=== PATIENT | female | born 1985 | race Caucasian/White ===

== ENCOUNTER 2019-09-03 13:39 | Emergency (ER) | payer OTHER, MEDICAID ==
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
== END 2019-09-03 18:58 | disposition home or self-care (01) ==
LOC: JP.ED 13:39
DX: T76.21XA Adult sexual abuse, suspected, initial encounter (principal); F17.210 Nicotine dependence, cigarettes, uncomplicated; F41.9 Anxiety disorder, unspecified; F32.9 Major depressive disorder, single episode, unspecified; Z79.899 Other long term (current) drug therapy; Z88.1 Allergy status to other antibiotic agents; Z88.2 Allergy status to sulfonamides; Z88.8 Allergy status to other drugs, medicaments and biological substances
CPT/HCPCS: 87491; 87591; 99284

== ENCOUNTER 2019-11-06 20:45 | Emergency (ER) | payer MEDICAID ==
[2019-11-06] MEDS ORDERED: Ketorolac 60 MG/2 ML SDV IM ONE (21:36)
--- NOTE | 2019-11-06 21:39 | EDM.PDOC ---
ED HPI GENERAL MEDICAL PROBLEM - General Chief Complaint: Lower Extremity Injury/Pain Stated Complaint: LEFT KNEE PAIN Time Seen by Provider: 11/06/19 21:27 Source of Information: Reports: Patient, Family, RN Notes Reviewed History Limitations: Reports: No Limitations - History of Present Illness INITIAL COMMENTS - FREE TEXT/NARRATIVE: 34-year-old female presents emergency department a with complaint of left knee pain, she injured herself yesterday when she fell in the bathtub unfortunately she had fallen and was unable to get up without assistance. She reports that the emergency department today because the Tylenol she is taking for pain is not helping. 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 Left Knee Pain Score (Numeric/FACES): 10 - Related Data Allergies Allergy/AdvReac Type Severity Reaction Status Date / Time methotrexate Allergy Cannot Verified 11/06/19 21:10 Remember sulfamethoxazole Allergy Cannot Verified 11/06/19 21:10 [From Bactrim] Remember trimethoprim [From Bactrim] Allergy Cannot Verified 11/06/19 21:10 Remember Home Meds: Home Meds ALPRAZolam 2 mg PO QID PRN 09/03/19 [History] DULoxetine HCl [Cymbalta] 60 mg PO DAILY 09/03/19 [History] Dextroamphetamine/Amphetamine [Adderall] 30 mg PO DAILY 09/03/19 [History] Doxepin HCl [Doxepin] 100 mg PO DAILY 09/03/19 [History] Prazosin HCl [Prazosin] 2 mg PO BEDTIME PRN 09/03/19 [History] clonazePAM [Clonazepam] 2 mg PO DAILY PRN 09/03/19 [History] ondansetron HCL [Zofran] 4 mg PO Q8H PRN 09/03/19 [History] tiZANidine [Zanaflex] 2 mg PO TID 11/06/19 [History] Past Medical History 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: Musculoskeletal History: Reports: Back Pain, Chronic Psychiatric History: Reports: Anxiety, Depression - Infectious Disease History Infectious Disease History: Reports: Chicken Pox - Past Surgical History Female Surgical History: Reports: Section, Hysterectomy Social & Family History - Tobacco Use Smoking Status *Q: Current Every Day Smoker Years of Tobacco use: 15 Packs/Tins Daily: 0.5 Used Tobacco, but Quit: No Second Hand Smoke Exposure: Yes - Caffeine Use Caffeine Use: Reports: Coffee, Tea - Alcohol Use Days Per Week of Alcohol Use: 0 - Recreational Drug Use Recreational Drug Use: No Review of Systems - Review of Systems Review Of Systems: See Below Respiratory: Reports: No Symptoms Cardiovascular: Reports: No Symptoms Musculoskeletal: Reports: Back Pain, Joint Pain Neurological: Reports: No Symptoms ED EXAM, GENERAL - Physical Exam Exam: See Below Free Text/Narrative:: Patient is very histrionic and difficult to obtain any physical exam, when I examined her knee she describes exquisite 10 out of 10 pain with a light touch no movement of the knee I do appreciate some edema around the knee but minimal there is no erythema there is no pallor to the knee. Examination of the back she can shrug her shoulders however she does complain of pain palpation of the back she complains of tenderness to very light touch throughout the thoracic region difficult to perform an exam Exam Limited By: No Limitations General Appearance: Alert, WD/WN, No Apparent Distress Respiratory/Chest: No Respiratory Distress Course - Vital Signs Last Recorded V/S: Last Vital Signs Temp 98.1 F 11/06/19 21:23 Pulse 105 H 11/06/19 21:23 Resp 20 11/06/19 21:23 BP 124/75 11/06/19 21:23 Pulse Ox 98 11/06/19 21:23 - Orders/Labs/Meds Orders: Active Orders 24 hr Category Date Time Status Knee 1V or 2V Lt [CR] Stat Exams 11/06/19 21:37 Taken Thoracic Spine 3V [CR] Stat Exams 11/06/19 21:36 Taken fentaNYL [Sublimaze] Med 11/06/19 22:29 Once 50 mcg IM ONETIME ONE Meds: Medications Discontinued Medications Generic Name Dose Route Start Last Admin Trade Name Freq PRN Reason Stop Dose Admin Ketorolac Tromethamine 60 mg 11/06/19 21:36 11/06/19 21:51 Toradol IM 11/06/19 21:37 60 mg ONETIME ONE Administration Departure - Departure Time of Disposition: 22:32 Disposition: Home, Self-Care 01 Condition: Poor Clinical Impression: Left knee pain Qualifiers: Chronicity: acute Qualified Code(s): M25.562 - Pain in left knee - Discharge Information Instructions: Acute Knee Pain, Adult Referrals: Consuelo Oh PA-C [Primary Care Provider] - Forms: ED Department Discharge Additional Instructions: Continue to use your Tylenol as needed for pain control,, orthopedics will contact you next week for an appointment time for further evaluation and treatment Sepsis Event Note (ED) - Evaluation Sepsis Screening Result: No Definite Risk - Focused Exam Vital Signs: Vital Signs Temp Pulse Resp BP Pulse Ox 11/06/19 21:23 98.1 F 105 H 20 124/75 98 - My Orders Last 24 Hours: My Active Orders 11/06/19 21:36 Thoracic Spine 3V [CR] Stat 11/06/19 21:37 Knee 1V or 2V Lt [CR] Stat 11/06/19 22:29 fentaNYL [Sublimaze] 50 mcg IM ONETIME ONE - Assessment/Plan Last 24 Hours: My Active Orders 11/06/19 21:36 Thoracic Spine 3V [CR] Stat 11/06/19 21:37 Knee 1V or 2V Lt [CR] Stat 11/06/19 22:29 fentaNYL [Sublimaze] 50 mcg IM ONETIME ONE Plan: Assessment Acuity = acute Site and laterality = left knee pain Etiology = secondary to a twisting injury Manifestations = none Location of injury = Home Lab values = x-ray of the knee as well as x-ray of the thorax I do not audelia reciate any acute process this will be over read by radiology Plan Consultation was set up with orthopedic surgery they will contact her next week for further evaluation and treatment continue to use Tylenol as needed for pain control, did offer Higinio wrap and crutches of which she declined This note was dictated using [employer] voice recognition software please call with any questions on syntax or grammar.
[2019-11-06] MEDS ORDERED: Ketorolac 60 MG/2 ML SDV ONE (21:43)
[2019-11-06] MEDS ORDERED: fentaNYL 100 MCG/2 ML SDV IM ONE (22:29)
[2019-11-06] MEDS ORDERED: fentaNYL 100 MCG/2 ML SDV ONE (22:35)
--- NOTE | 2019-11-09 09:26 | CR ---
Thoracic Spine 3V, CLINICAL HISTORY: Fall FINDINGS: The vertebral bodies are normal in height. There is no significant osteophytosis. The pedicles are unremarkable. Impression: Negative Knee 1V or 2V Lt CLINICAL HISTORY: Fall FINDINGS: No acute fracture or dislocation is noted. There are no osseous lesions. Articular surfaces are smooth Impression: Negative
== END 2019-11-06 23:09 | disposition home or self-care (01) ==
LOC: JP.ED 20:45
DX: M25.562 Pain in left knee (principal); F41.9 Anxiety disorder, unspecified; F32.9 Major depressive disorder, single episode, unspecified; F17.210 Nicotine dependence, cigarettes, uncomplicated; Z88.8 Allergy status to other drugs, medicaments and biological substances; Z88.2 Allergy status to sulfonamides; Z88.1 Allergy status to other antibiotic agents; Z79.899 Other long term (current) drug therapy
CPT/HCPCS: 72072; 73560; 96372; 99283; J1885; J3010

== ENCOUNTER 2019-12-16 23:43 | Emergency (ER) | payer MEDICAID ==
[2019-12-17] MEDS ORDERED: Ketorolac 60 MG/2 ML SDV IM ONE (00:44)
--- NOTE | 2019-12-17 00:50 | EDM.PDOC ---
ED HPI GENERAL MEDICAL PROBLEM - General Chief Complaint: Lower Extremity Injury/Pain Stated Complaint: FELL INJURING RIGHT LEG Time Seen by Provider: 12/17/19 00:35 Source of Information: Reports: Patient, Old Records, RN History Limitations: Reports: No Limitations - History of Present Illness INITIAL COMMENTS - FREE TEXT/NARRATIVE: 34 yo female stood up tonight from her couch and fell with resulting injury to that foot. Came promptly to the ER. Did not take anything for the pain. Denies LOC. Is not sure why she fell. Reports a hx of many injuries to that foot in the past, but no surgeries. Onset: Today, Sudden Onset Date: 12/17/19 Duration: Minutes:, Constant Location: Reports: Lower Extremity, Right Quality: Reports: Burning Severity: Moderate Improves with: Reports: None Worsens with: Reports: None Context: Reports: Trauma Associated Symptoms: Reports: No Other Symptoms Treatments MASS SPEC: Reports: Other (see below) (none) right leg Pain Score (Numeric/FACES): 10 - Related Data Allergies Allergy/AdvReac Type Severity Reaction Status Date / Time methotrexate Allergy Cannot Verified 12/17/19 00:05 Remember sulfamethoxazole Allergy Cannot Verified 12/17/19 00:05 [From Bactrim] Remember trimethoprim [From Bactrim] Allergy Cannot Verified 12/17/19 00:05 Remember Home Meds: Home Meds ALPRAZolam 2 mg PO QID PRN 09/03/19 [History] DULoxetine HCl [Cymbalta] 60 mg PO DAILY 09/03/19 [History] Dextroamphetamine/Amphetamine [Adderall] 30 mg PO DAILY 09/03/19 [History] Doxepin HCl [Doxepin] 100 mg PO BEDTIME 09/03/19 [History] Prazosin HCl [Prazosin] 2 mg PO BEDTIME PRN 09/03/19 [History] clonazePAM [Clonazepam] 2 mg PO BEDTIME PRN 09/03/19 [History] ondansetron HCL [Zofran] 4 mg PO Q8H PRN 09/03/19 [History] tiZANidine [Zanaflex] 2 mg PO TID 11/06/19 [History] Acetaminophen [Acetaminophen Extra Strength] 500 mg PO ASDIRECTED PRN 12/17/19 [History] Past Medical History Respiratory History: Reports: Other (See Below) Other Respiratory History: sarcidosis 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: Musculoskeletal History: Reports: Back Pain, Chronic, Other (See Below) Other Musculoskeletal History: torn ligament left leg Psychiatric History: Reports: Anxiety, Depression, Suicide Attempt Endocrine/Metabolic History: Reports: Obesity/BMI 30+ - Infectious Disease History Infectious Disease History: Reports: Chicken Pox - Past Surgical History HEENT Surgical History: Reports: Adenoidectomy, Tonsillectomy GI Surgical History: Reports: Hernia Repair/Other Female Surgical History: Reports: Section, Hysterectomy Neurological Surgical History: Reports: Lumbar Spine Social & Family History - Tobacco Use Tobacco Use Status *Q: Current Every Day Tobacco User Years of Tobacco use: 17 Packs/Tins Daily: 0.4 - Caffeine Use Caffeine Use: Reports: Coffee, Soda - Recreational Drug Use Recreational Drug Use: Yes Drug Use in Last 12 Months: Yes Recreational Drug Type: Reports: Marijuana/Hashish Recreational Drug Use Frequency: Rarely Review of Systems - Review of Systems Review Of Systems: See Below Constitutional: Reports: No Symptoms Musculoskeletal: Reports: Foot Pain (Right) Skin: Denies: Bruising, Erythema Neurological: Reports: No Symptoms ED EXAM, GENERAL - Physical Exam Exam: See Below Exam Limited By: No Limitations General Appearance: Alert, WD/WN, No Apparent Distress Back Exam: Normal Inspection Extremities: Normal Inspection, Normal Range of Motion, No Pedal Edema. No: Non-Tender (minimal diffuse tenderness), Pedal Edema (no swelling or deformity), Limited Range of Motion (ROM appears to be pretty normal. ), Increased Warmth, Redness Neurological: Alert, Oriented, CN II-XII Intact, Normal Cognition, No Motor/Sensory Deficits Psychiatric: Normal Affect, Normal Mood Skin Exam: Warm, Dry, Intact, Normal Color, No Rash. No: Cool, Ecchymosis, Erythema, Increased Warmth, Mottled, Pallor, Wound/Incision Course - Vital Signs Last Recorded V/S: Last Vital Signs Temp 36.8 C 12/17/19 00:16 Pulse 99 12/17/19 00:16 Resp 17 12/17/19 00:16 BP 134/67 12/17/19 00:16 Pulse Ox 98 12/17/19 00:16 - Orders/Labs/Meds Orders: Active Orders 24 hr Category Date Time Status Foot Comp Min 3V Rt [CR] Stat Exams 12/17/19 00:44 Ordered Meds: Medications Discontinued Medications Generic Name Dose Route Start Last Admin Trade Name Kadie PRN Reason Stop Dose Admin Ketorolac Tromethamine 60 mg 12/17/19 00:44 12/17/19 00:54 Toradol IM 12/17/19 00:45 60 mg ONETIME ONE Administration - Radiology Interpretation Free Text/Narrative:: R foot X-ray-neg Departure - Departure Time of Disposition: 01:15 Disposition: Home, Self-Care 01 Condition: Good Clinical Impression: Right foot strain Qualifiers: Encounter type: initial encounter Qualified Code(s): S96.911A - Strain of unspecified muscle and tendon at ankle and foot level, right foot, initial encounter - Discharge Information *PRESCRIPTION DRUG MONITORING PROGRAM REVIEWED*: No *COPY OF PRESCRIPTION DRUG MONITORING REPORT IN PATIENT CATHIE: No Referrals: Consuelo Oh PA-C [Primary Care Provider] - Forms: ED Department Discharge Additional Instructions: Aleve 2 every 8 hrs with food starting in the morning. Acetaminophen up to 1000 mg every 6 hrs as needed. We'll contact you if radiology sees any fractures later today. F/U with your doctor as needed. Sepsis Event Note (ED) - Evaluation Sepsis Screening Result: No Definite Risk - Focused Exam Vital Signs: Vital Signs Temp Pulse Resp BP Pulse Ox 12/17/19 00:16 36.8 C 99 17 134/67 98 12/17/19 00:09 36.8 C 99 17 134/67 98 - My Orders Last 24 Hours: My Active Orders 12/17/19 00:44 Foot Comp Min 3V Rt [CR] Stat - Assessment/Plan Last 24 Hours: My Active Orders 12/17/19 00:44 Foot Comp Min 3V Rt [CR] Stat
--- NOTE | 2019-12-17 09:17 | CR ---
Foot Comp Min 3V Rt CLINICAL HISTORY: Pain, trauma FINDINGS: There is no acute fracture or dislocation within the foot. No destructive changes are present. There is a small calcaneal spur. IMPRESSION: No acute bony process.
== END 2019-12-17 01:25 | disposition home or self-care (01) ==
LOC: JP.ED 23:43
DX: S96.911A Strain of unspecified muscle and tendon at ankle and foot level, right foot, initial encounter (principal); F41.9 Anxiety disorder, unspecified; F32.9 Major depressive disorder, single episode, unspecified; E66.9 Obesity, unspecified; F17.210 Nicotine dependence, cigarettes, uncomplicated; Z68.36 Body mass index [BMI] 36.0-36.9, adult; Z88.8 Allergy status to other drugs, medicaments and biological substances; Z88.2 Allergy status to sulfonamides; Z88.1 Allergy status to other antibiotic agents; Z79.899 Other long term (current) drug therapy; W08.XXXA Fall from other furniture, initial encounter
CPT/HCPCS: 73630; 96372; 99283; J1885

== ENCOUNTER 2020-01-25 03:07 | Emergency (ER) | payer MEDICAID ==
--- NOTE | 2020-01-25 03:47 | EDM.PDOCBH ---
ED HPI GENERAL MEDICAL PROBLEM - General Chief Complaint: Drug or Alcohol Abuse Stated Complaint: EVAL Time Seen by Provider: 01/25/20 03:25 Source of Information: Reports: Patient, Family History Limitations: Reports: No Limitations - History of Present Illness INITIAL COMMENTS - FREE TEXT/NARRATIVE: 34-year-old female who was having a "panic attack" tonight and took 8 Xanax, 2 hours later she took 8 more. She was acting sedated and drowsy and admitted to her that she had taken many medications. She did not take them to hurt herself according to the patient. She has some slurred speech but is otherwise stable. No other symptoms currently. She wanted to get checked out because she did not want to "go into a coma". Associated Symptoms: Denies: Chest Pain, Fever/Chills, Shortness of Breath - Related Data Allergies Allergy/AdvReac Type Severity Reaction Status Date / Time methotrexate Allergy Cannot Verified 01/25/20 03:20 Remember sulfamethoxazole Allergy Cannot Verified 01/25/20 03:20 [From Bactrim] Remember trimethoprim [From Bactrim] Allergy Cannot Verified 01/25/20 03:20 Remember Home Meds: Home Meds ALPRAZolam 2 mg PO QID PRN 09/03/19 [History] DULoxetine HCl [Cymbalta] 60 mg PO DAILY 09/03/19 [History] Dextroamphetamine/Amphetamine [Adderall] 30 mg PO DAILY 09/03/19 [History] Doxepin HCl [Doxepin] 100 mg PO BEDTIME 09/03/19 [History] Prazosin HCl [Prazosin] 2 mg PO BEDTIME PRN 09/03/19 [History] clonazePAM [Clonazepam] 2 mg PO BEDTIME PRN 09/03/19 [History] ondansetron HCL [Zofran] 4 mg PO Q8H PRN 09/03/19 [History] tiZANidine [Zanaflex] 2 mg PO TID 11/06/19 [History] Acetaminophen [Acetaminophen Extra Strength] 500 mg PO ASDIRECTED PRN 12/17/19 [History] Past Medical History Cardiovascular History: Reports: Arrhythmia Respiratory History: Reports: Asthma, Other (See Below) Other Respiratory History: sarcidosis 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: Musculoskeletal History: Reports: Back Pain, Chronic, Other (See Below) Other Musculoskeletal History: torn ligament left leg Psychiatric History: Reports: ADHD, Anxiety, Depression, Psych Hospitalization(s), Suicide Attempt, Suicidal Ideation Endocrine/Metabolic History: Reports: Obesity/BMI 30+ - Infectious Disease History Infectious Disease History: Reports: Chicken Pox, Herpes, Mononucleosis - Past Surgical History HEENT Surgical History: Reports: Adenoidectomy, Tonsillectomy GI Surgical History: Reports: Hernia Repair/Other Female Surgical History: Reports: Section, Hysterectomy Neurological Surgical History: Reports: Lumbar Spine Social & Family History - Tobacco Use Tobacco Use Status *Q: Current Every Day Tobacco User Years of Tobacco use: 16 Packs/Tins Daily: 0.2 - Caffeine Use Caffeine Use: Reports: Coffee, Soda - Recreational Drug Use Recreational Drug Use: Yes Drug Use in Last 12 Months: No Recreational Drug Type: Reports: Ecstasy, LSD (Acid), Marijuana/Hashish ED ROS GENERAL - Review of Systems Review Of Systems: See Below Constitutional: Denies: Fever, Chills Respiratory: Denies: Shortness of Breath GI/Abdominal: Denies: Nausea, Vomiting Neurological: Denies: Headache Psychiatric: Reports: Anxiety ED EXAM, BEHAVIORAL HEALTH - Physical Exam Exam: See Below Exam Limited By: No Limitations General Appearance: Alert, No Apparent Distress Eye Exam: Bilateral Eye: PERRL Head: Atraumatic Respiratory/Chest: No Respiratory Distress, Lungs Clear Cardiovascular: Regular Rate, Rhythm Extremities: No: Pedal Edema Neurological: Alert, Oriented x 3 Psychiatric: Depressed Mood, Flat Affect Skin Exam: Warm, Dry COURSE, BEHAVIORAL HEALTH COMP - Course Vital Signs: Last Vital Signs Temp 97.9 F 01/25/20 03:26 Pulse 104 H 01/25/20 03:26 Resp 26 H 01/25/20 03:26 BP 139/87 01/25/20 03:26 Pulse Ox 97 01/25/20 03:26 Re-Assessment/Re-Exam: Poison control was contacted and recommended no monitoring necessary. She will be discharged to the care of her , with recommendations to no longer take any medications except how prescribed. Departure - Departure Time of Disposition: 04:26 Disposition: Home, Self-Care 01 Clinical Impression: Prescription drug abuse - Discharge Information Instructions: Managing Anxiety, Adult Referrals: Consuelo hO PA-C [Primary Care Provider] - Forms: ED Department Discharge Care Plan Goals: Take your medications only as prescribed, if you do not feel they are helping see your regular provider to discuss possible medication changes. Sepsis Event Note (ED) - Evaluation Sepsis Screening Result: No Definite Risk - Focused Exam Vital Signs: Vital Signs Temp Pulse Resp BP Pulse Ox 01/25/20 03:26 97.9 F 104 H 26 H 139/87 97 01/25/20 03:25 97.9 F 104 H 26 H 139/87 97
== END 2020-01-25 04:28 | disposition home or self-care (01) ==
LOC: JP.ED 03:07
DX: F19.10 Other psychoactive substance abuse, uncomplicated (principal); E66.9 Obesity, unspecified; F17.210 Nicotine dependence, cigarettes, uncomplicated; F41.9 Anxiety disorder, unspecified; F32.9 Major depressive disorder, single episode, unspecified; J45.909 Unspecified asthma, uncomplicated; Z88.2 Allergy status to sulfonamides; Z88.8 Allergy status to other drugs, medicaments and biological substances; Z79.899 Other long term (current) drug therapy; Z90.49 Acquired absence of other specified parts of digestive tract; Z90.710 Acquired absence of both cervix and uterus; Z68.38 Body mass index [BMI] 38.0-38.9, adult
CPT/HCPCS: 99283

== ENCOUNTER 2020-02-19 03:17 | Emergency (ER) | payer MEDICAID ==
--- NOTE | 2020-02-19 04:22 | EDM.PDOC ---
ED HPI GENERAL MEDICAL PROBLEM - General Chief Complaint: General Stated Complaint: TREMORS Time Seen by Provider: 02/19/20 04:05 Source of Information: Reports: Patient, Old Records, RN History Limitations: Reports: No Limitations - History of Present Illness INITIAL COMMENTS - FREE TEXT/NARRATIVE: 34 yo female who was here in the middle of the night last night for taking too many of her anxiety pills presents tonight in the middle of the night for taking too much of her albuterol. Is a smoker. While here last night was given azithromycin and albuterol for wheezing. No fever. Thinks she took about 10 puffs consecutively for her wheezing and now has tachycardia and jitteriness. Onset: Today, Gradual Onset Date: 02/19/20 Duration: Minutes: Location: Reports: Chest, Generalized Quality: Reports: Ache (all over now that the effects of the albuterol is wearing off. 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) (albuterol puffs x 10) Chest Pain Score (Numeric/FACES): 6 - Related Data Allergies Allergy/AdvReac Type Severity Reaction Status Date / Time methotrexate Allergy Cannot Verified 02/19/20 03:38 Remember sulfamethoxazole Allergy Cannot Verified 02/19/20 03:38 [From Bactrim] Remember trimethoprim [From Bactrim] Allergy Cannot Verified 02/19/20 03:38 Remember Home Meds: Home Meds ALPRAZolam 2 mg PO QID PRN 09/03/19 [History] DULoxetine HCl [Cymbalta] 60 mg PO DAILY 09/03/19 [History] Dextroamphetamine/Amphetamine [Adderall] 30 mg PO DAILY 09/03/19 [History] Doxepin HCl [Doxepin] 100 mg PO BEDTIME 09/03/19 [History] Prazosin HCl [Prazosin] 2 mg PO BEDTIME PRN 09/03/19 [History] clonazePAM [Clonazepam] 2 mg PO BEDTIME PRN 09/03/19 [History] ondansetron HCL [Zofran] 4 mg PO Q8H PRN 09/03/19 [History] tiZANidine [Zanaflex] 2 mg PO TID 11/06/19 [History] Acetaminophen [Acetaminophen Extra Strength] 500 mg PO ASDIRECTED PRN 12/17/19 [History] Albuterol Sulfate [Albuterol Sulfate Hfa] 1 inh INH Q4H PRN 02/19/20 [History] Azithromycin 250 mg PO DAILY 02/19/20 [History] Hydrocodone/Acetaminophen [[place] 5-325 Tablet] 1 tab PO Q4HR PRN 02/19/20 [History] Past Medical History Cardiovascular History: Reports: Arrhythmia Respiratory History: Reports: Asthma, Other (See Below) Other Respiratory History: sarcidosis 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: Musculoskeletal History: Reports: Back Pain, Chronic, Other (See Below) Other Musculoskeletal History: torn ligament left leg Psychiatric History: Reports: ADHD, Anxiety, Depression, Psych Hospitalization(s), Suicide Attempt, Suicidal Ideation Endocrine/Metabolic History: Reports: Obesity/BMI 30+ - Infectious Disease History Infectious Disease History: Reports: Chicken Pox, Herpes, Mononucleosis - Past Surgical History HEENT Surgical History: Reports: Adenoidectomy, Tonsillectomy GI Surgical History: Reports: Hernia Repair/Other Female Surgical History: Reports: Section, Hysterectomy Neurological Surgical History: Reports: Lumbar Spine Social & Family History - Tobacco Use Tobacco Use Status *Q: Current Every Day Tobacco User Years of Tobacco use: 18 Packs/Tins Daily: 0.5 - Caffeine Use Caffeine Use: Reports: Soda - Recreational Drug Use Recreational Drug Use: Yes Recreational Drug Type: Reports: Marijuana/Hashish Recreational Drug Last Use: marijuana on Saturday ED ROS GENERAL - Review of Systems Review Of Systems: See Below Constitutional: Reports: No Symptoms HEENT: Reports: No Symptoms Respiratory: Reports: Wheezing Cardiovascular: Reports: Palpitations GI/Abdominal: Reports: No Symptoms : Reports: No Symptoms Musculoskeletal: Reports: Other (diffuse achiness) Skin: Reports: No Symptoms Neurological: Reports: Tingling (in hands/feet), Tremors ED EXAM, GENERAL - Physical Exam Exam: See Below Exam Limited By: No Limitations General Appearance: Alert, WD/WN, No Apparent Distress, Obese Eye Exam: Bilateral Eye: Normal Inspection Ears: Normal External Exam, Normal Canal, Hearing Grossly Normal Ear Exam: Bilateral Ear: Auricle Normal, Canal Normal Nose: Normal Inspection, No Blood Throat/Mouth: Normal Inspection, Normal Lips, Normal Oropharynx, Normal Voice, No Airway Compromise Head: Atraumatic, Normocephalic Neck: Normal Inspection Respiratory/Chest: No Respiratory Distress, Normal Breath Sounds, No Accessory Muscle Use, Wheezing Cardiovascular: Regular Rate, Rhythm, No Edema, Tachycardia Back Exam: Normal Inspection Extremities: Normal Inspection, Normal Range of Motion, Non-Tender, No Pedal Edema Neurological: Alert, Oriented, CN II-XII Intact, Normal Cognition, No Motor/Sensory Deficits Psychiatric: Normal Affect, Normal Mood Skin Exam: Warm, Dry, Intact, Normal Color, No Rash Course - Vital Signs Last Recorded V/S: Last Vital Signs Temp 36.7 C 02/19/20 03:36 Pulse 122 H 02/19/20 03:36 Resp 24 H 02/19/20 03:36 BP 93/36 L 02/19/20 03:36 Pulse Ox 97 02/19/20 03:36 Departure - Departure Time of Disposition: 04:30 Disposition: Home, Self-Care 01 Condition: Fair Clinical Impression: Bronchospasm, Overuse of medication - Discharge Information *PRESCRIPTION DRUG MONITORING PROGRAM REVIEWED*: Not Applicable *COPY OF PRESCRIPTION DRUG MONITORING REPORT IN PATIENT CATHIE: Not Applicable Instructions: Bronchospasm, Adult, [id number] Referrals: Consuelo Oh PA-C [Primary Care Provider] - Additional Instructions: Use your albuterol as directed, do not use more than your directions suggest. Add prednisone as directed. See your doctor for recheck within the week. No smoking. Sepsis Event Note (ED) - Evaluation Sepsis Screening Result: No Definite Risk - Focused Exam Vital Signs: Vital Signs Temp Pulse Resp BP Pulse Ox 02/19/20 03:36 36.7 C 122 H 24 H 93/36 L 97
== END 2020-02-19 04:36 | disposition home or self-care (01) ==
LOC: JP.ED 03:17
DX: J98.01 Acute bronchospasm (principal); E66.9 Obesity, unspecified; F17.210 Nicotine dependence, cigarettes, uncomplicated; Z68.41 Body mass index [BMI] 40.0-44.9, adult; Z88.8 Allergy status to other drugs, medicaments and biological substances; Z88.2 Allergy status to sulfonamides; Z88.1 Allergy status to other antibiotic agents; Z79.899 Other long term (current) drug therapy
CPT/HCPCS: 99283; 99284

== ENCOUNTER 2020-04-21 00:47 | Emergency (ER) | payer MEDICAID ==
[2020-04-21] MEDS ORDERED: Sodium Chloride 0.9% 10 ML Syringe FLUSH PRN (00:56)
[2020-04-21] MEDS ORDERED: Ketorolac 30 MG/ML SDV IVPUSH ONE (01:03)
[2020-04-21] MEDS ORDERED: Ketorolac 30 MG/ML SDV IM ONE (01:05)
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
[2020-04-21] MEDS ORDERED: HYDROmorphone 0.5 MG/0.5 ML Syringe IM ONE (01:58)
[2020-04-21] MEDS ORDERED: Methocarbamol 500 MG Tab PO ONE (02:57)
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
== END 2020-04-21 03:51 | disposition home or self-care (01) ==
LOC: JP.ED 00:47
DX: S06.0X0A Concussion without loss of consciousness, initial encounter (principal); S39.012A Strain of muscle, fascia and tendon of lower back, initial encounter; S29.012A Strain of muscle and tendon of back wall of thorax, initial encounter; S16.1XXA Strain of muscle, fascia and tendon at neck level, initial encounter; J45.909 Unspecified asthma, uncomplicated; E66.9 Obesity, unspecified; Z68.41 Body mass index [BMI] 40.0-44.9, adult; Z88.8 Allergy status to other drugs, medicaments and biological substances; Z88.2 Allergy status to sulfonamides; Z88.1 Allergy status to other antibiotic agents; Z79.899 Other long term (current) drug therapy; Z72.0 Tobacco use; V86.52XA Driver of snowmobile injured in nontraffic accident, initial encounter
CPT/HCPCS: 36415; 70450; 71046; 71046-26; 72125; 72128; 72131; 80053; 80305-QW; 80307; 81001; 85025; 96372; 99283; 99285-25; A9270-GY; J1170; J1885

== ENCOUNTER 2020-08-19 04:10 | Emergency (ER) | payer MEDICAID, OTHER ==
--- NOTE | 2020-08-19 04:44 | EDM.PDOCBH ---
<Bahman Keys - Last Filed: 08/19/20 06:51> ED HPI GENERAL MEDICAL PROBLEM - General Chief Complaint: Behavioral/Psych Stated Complaint: EVAL Time Seen by Provider: 08/19/20 04:16 Source of Information: Reports: Patient, Family History Limitations: Reports: Uncooperative - History of Present Illness INITIAL COMMENTS - FREE TEXT/NARRATIVE: Bushra is a 35-year-old female who was brought into the ED by her significant other after supposedly ingesting an unknown quantity of an unknown variety of medications. The patient is not cooperative with answering questions but is responding with defiance. The significant other stated that she had told him that she had taken a bunch of pills and she is on many antipsychotic medications and prescription drugs. She has made comment that she wants to be DNR/DNI but it appears that she intentionally overdosed. Given this information I immediately put her on a 72-hour hold. - Related Data Allergies Allergy/AdvReac Type Severity Reaction Status Date / Time methotrexate Allergy Cannot Verified 08/19/20 05:14 Remember sulfamethoxazole Allergy Cannot Verified 08/19/20 05:14 [From Bactrim] Remember trimethoprim [From Bactrim] Allergy Cannot Verified 08/19/20 05:14 Remember Home Meds: Home Meds ALPRAZolam 2 mg PO QID PRN 09/03/19 [History] DULoxetine HCl [Cymbalta] 60 mg PO DAILY 09/03/19 [History] Dextroamphetamine/Amphetamine [Adderall] 30 mg PO DAILY 09/03/19 [History] Doxepin HCl [Doxepin] 100 mg PO BEDTIME 09/03/19 [History] Prazosin HCl [Prazosin] 5 mg PO BEDTIME PRN 09/03/19 [History] clonazePAM [Clonazepam] 2 mg PO BEDTIME PRN 09/03/19 [History] ondansetron HCL [Zofran] 4 mg PO Q8H PRN 09/03/19 [History] tiZANidine [Zanaflex] 2 mg PO TID 11/06/19 [History] Acetaminophen [Acetaminophen Extra Strength] 500 mg PO ASDIRECTED PRN 12/17/19 [History] Albuterol Sulfate [Albuterol Sulfate Hfa] 1 inh INH Q4H PRN 02/19/20 [History] Hydrocodone/Acetaminophen [[place] 5-325 Tablet] 1 tab PO Q4HR PRN 02/19/20 [History] Past Medical History Cardiovascular History: Reports: Arrhythmia Respiratory History: Reports: Asthma, Other (See Below) Other Respiratory History: sarcidosis [employer] History: Reports: Musculoskeletal History: Reports: Back Pain, Chronic, Other (See Below) Other Musculoskeletal History: torn ligament left leg Psychiatric History: Reports: ADHD, Anxiety, Depression, Psych Hospitalization(s), Suicide Attempt, Suicidal Ideation Endocrine/Metabolic History: Reports: Obesity/BMI 30+ - Infectious Disease History Infectious Disease History: Reports: Chicken Pox, Herpes, Mononucleosis - Past Surgical History HEENT Surgical History: Reports: Adenoidectomy, Tonsillectomy GI Surgical History: Reports: Hernia Repair/Other Female Surgical History: Reports: Section, Hysterectomy Neurological Surgical History: Reports: Lumbar Spine Social & Family History - Caffeine Use Caffeine Use: Reports: Coffee, Tea ED ROS GENERAL - Review of Systems Review Of Systems: Unable To Obtain Reason Not Obtained: Patient is refusing to answer questions ED EXAM, BEHAVIORAL HEALTH - Physical Exam Exam: See Below Exam Limited By: Uncooperative General Appearance: Lethargic, Obese Throat/Mouth: Normal Inspection, Normal Oropharynx, Normal Voice, No Airway Compromise Head: Normocephalic Neck: Normal Inspection, Supple Respiratory/Chest: No Respiratory Distress, Lungs Clear, Normal Breath Sounds, Other (At times she willfully holds her breath as long as she can) Cardiovascular: Normal Peripheral Pulses, Regular Rate, Rhythm, No Murmur GI/Abdominal: Normal Bowel Sounds, Soft, Non-Tender Extremities: Normal Inspection, Normal Range of Motion, No Pedal Edema, Normal Capillary Refill Neurological: Alert, Normal Cognition, No Motor/Sensory Deficits, Oriented x 3, Other (There appears to be some attention-getting games going on here with the patient feigning to be unresponsive but then is able to stand up and move over from the chair to the bed with minimal assistance.) Psychiatric: Uncooperative Skin Exam: Warm, Dry, Intact, Normal color #1 Interpretation EKG Date: 08/19/20 Time: 04:48 Rhythm: NSR Rate (Beats/Min): [address] [place]: Normal P-Wave: Present QRS: Normal ST-T: Normal QT: Normal Comparison: NA - No Prior EKG COURSE, BEHAVIORAL HEALTH COMP - Course Re-Assessment/Re-Exam: Patient is on a variety of medications including hydrocodone, tizanidine, acetaminophen, prazosin, duloxetine, alprazolam, doxepin, clonazepam, ondansetron, and an phentermine dextroamphetamine XR. It is unclear what of these she may have taken or what additional medications she may have taken. We will check for electrolytes with a comprehensive metabolic panel, magnesium, CBC, ethanol, acetaminophen, salicylate, urine drug screen and urinalysis, and an EKG. I discussed the case with poison control who basically recommended we watch for any QRS enlargement or QT prolongation. They recommended cardiac monitoring for at least 8 hours. The patient has been placed on a 72-hour hold with suspicion of intentional overdose. She has been uncooperative for her evaluation and still refuses to tell us what she took. [facility]. Perkins. Poison control recommends if she has any enlargement of QRS or prolongation of the QT to check for magnesium and calcium levels and treat appropriately. She may also need sodium bicarbonate for any QRS prolongation. They also recommended watching for hypotension which could be secondary to the doxepin for seizure which could be secondary to the duloxetine. Seizures will be responsive to benzodiazepines. I did review the patient's [facility] chart. I reviewed the patient's labs showing a leukocytosis of 13.2 which is predominantly monocytes. Her hemoglobin is 15.0 with a hematocrit of 44 and a platelet count of 260,000. Her comprehensive metabolic panel is essentially normal with normal LFTs, calcium, sodium and potassium, chloride and bicarbonate. Her anion gap is slightly elevated at 14.4. Her ethanol level is the less than 3. Her acetaminophen level is 0.0 and her salicylate level is 2.6 which is normal. Urinalysis and urine drug screen are pending. 05:50 urinalysis is negative for any infection. Urine drug screen is only positive for benzodiazepines. The patient is on Xanax. There is no evidence for tricyclic's, and feta means or methamphetamines, phencyclidine, THC, opiates, barbiturates, MDMA, cocaine, or propoxyphene. 07:00 care of the patient will be transferred from Dr. Keys to Dr. Chua with the plan to continue to monitor her for 8 hours. After which time she can be medically cleared for consideration for transfer for inpatient psychiatry. Departure - Departure Disposition: DC/Tfer to Other 70 Clinical Impression: Intentional overdose of drug in tablet form, Depressive disorder - Discharge Information Referrals: PCP,None [Primary Care Provider] - Forms: ED Department Discharge Care Plan Goals: Patient will be transferred by EMS to [facility] for inpatient evaluation, treatment, and stabilization of severe depression with suicidal attempt. <Christian Chua - Last Filed: 08/19/20 13:53> COURSE, BEHAVIORAL HEALTH COMP - Course Vital Signs: Last Vital Signs Temp 97.6 F 08/19/20 04:35 Pulse 82 08/19/20 07:50 Resp 26 H 08/19/20 07:50 BP 110/68 08/19/20 07:50 Pulse Ox 94 L 08/19/20 07:50 Orders, Labs, Meds: Active Orders 24 hr Category Date Time Status EKG Documentation Completion [RC] ASDIRECTED Care 08/19/20 04:23 Active EKG 12 Lead [EK] Routine Ther 08/19/20 04:23 Ordered Laboratory Tests 08/19/20 08/19/20 08/19/20 Range/Units 04:23 04:23 04:33 WBC 13.2 H (4.5-11.0) K/uL RBC 4.75 (3.30-5.50) M/uL Hgb 15.0 (12.0-15.0) g/dL Hct 44.0 (36.0-48.0) % MCV 93 (80-98) fL MCH 32 H (27-31) pg MCHC 34 (32-36) % Plt Count 260 (150-400) K/uL Neut % (Auto) 54.1 (36-66) % Lymph % (Auto) 35.0 (24-44) % [place] % (Auto) 8.0 H (2-6) % Eos % (Auto) 2.4 (2-4) % Baso % (Auto) 0.5 (0-1) % Sodium (140-148) mmol/L Potassium (3.6-5.2) mmol/L Chloride (100-108) mmol/L Carbon Dioxide (21-32) mmol/L Anion Gap (5.0-14.0) mmol/L BUN (7-18) mg/dL Creatinine (0.6-1.0) mg/dL Est Cr Clr Drug Dosing mL/min Estimated GFR (MDRD) (>60) Glucose (74-106) mg/dL Calcium (8.5-10.1) mg/dL Total Bilirubin (0.2-1.0) mg/dL AST (15-37) U/L ALT (12-78) U/L Alkaline Phosphatase (46-116) U/L Total Protein (6.4-8.2) g/dL Albumin (3.4-5.0) g/dL Globulin (2.3-3.5) g/dL Albumin/Globulin Ratio (1.2-2.2) Urine Color Yellow (YELLOW) Urine Appearance Turbid A (CLEAR) Urine pH 6.0 (5.0-8.0) Ur Specific [place] >= 1.030 (1.008-1.030) Urine Protein Negative (NEGATIVE) mg/dL Urine Glucose (UA) Negative (NEGATIVE) mg/dL Urine Ketones Negative (NEGATIVE) mg/dL Urine Occult Blood Negative (NEGATIVE) Urine Nitrite Negative (NEGATIVE) Urine Bilirubin Negative (NEGATIVE) Urine Urobilinogen 0.2 (0.2-1.0) EU/dL Ur Leukocyte Esterase Negative (NEGATIVE) Urine RBC 0-5 (0-5) Urine WBC 0-5 (0-5) Ur Epithelial Cells Few Amorphous Sediment Numerous Urine Bacteria Rare Urine Mucus Rare Salicylates (2.0-20.0) mg/dL Urine Opiates Screen Negative (NEGATIVE) Ur Oxycodone Screen Negative (NEGATIVE) Urine Methadone Screen Negative (NEGATIVE) Ur Propoxyphene Screen Negative (NEGATIVE) Acetaminophen (10.0-30.0) ug/mL Ur Barbiturates Screen Negative (NEGATIVE) Ur Tricyclics Screen Negative (NEGATIVE) Ur Phencyclidine Scrn Negative (NEGATIVE) Ur Amphetamine Screen Negative (NEGATIVE) U Methamphetamines Scrn Negative (NEGATIVE) Urine MDMA Screen Negative (NEGATIVE) U Benzodiazepines Scrn Presumptive positive H (NEGATIVE) U Cocaine Metab Screen Negative (NEGATIVE) U Marijuana (THC) Screen Negative (NEGATIVE) Ethyl Alcohol mg/dL 08/19/20 08/19/20 08/19/20 Range/Units 04:33 04:33 04:33 WBC (4.5-11.0) K/uL RBC (3.30-5.50) M/uL Hgb (12.0-15.0) g/dL Hct (36.0-48.0) % MCV (80-98) fL MCH (27-31) pg MCHC (32-36) % Plt Count (150-400) K/uL Neut % (Auto) (36-66) % Lymph % (Auto) (24-44) % [place] % (Auto) (2-6) % Eos % (Auto) (2-4) % Baso % (Auto) (0-1) % Sodium 139 L (140-148) mmol/L Potassium 4.4 (3.6-5.2) mmol/L Chloride 105 (100-108) mmol/L Carbon Dioxide 24 (21-32) mmol/L Anion Gap 14.4 H (5.0-14.0) mmol/L BUN 11 (7-18) mg/dL Creatinine 0.8 (0.6-1.0) mg/dL Est Cr Clr Drug Dosing 92.76 mL/min Estimated GFR (MDRD) > 60 (>60) Glucose 96 (74-106) mg/dL Calcium 8.8 (8.5-10.1) mg/dL Total Bilirubin 0.6 D (0.2-1.0) mg/dL AST 33 D (15-37) U/L ALT 50 (12-78) U/L Alkaline Phosphatase 82 (46-116) U/L Total Protein 6.9 (6.4-8.2) g/dL Albumin 3.3 L (3.4-5.0) g/dL Globulin 3.6 H (2.3-3.5) g/dL Albumin/Globulin Ratio 0.9 L (1.2-2.2) Urine Color (YELLOW) Urine Appearance (CLEAR) Urine pH (5.0-8.0) Ur Specific [place] (1.008-1.030) Urine Protein (NEGATIVE) mg/dL Urine Glucose (UA) (NEGATIVE) mg/dL Urine Ketones (NEGATIVE) mg/dL Urine Occult Blood (NEGATIVE) Urine Nitrite (NEGATIVE) Urine Bilirubin (NEGATIVE) Urine Urobilinogen (0.2-1.0) EU/dL Ur Leukocyte Esterase (NEGATIVE) Urine RBC (0-5) Urine WBC (0-5) Ur Epithelial Cells Amorphous Sediment Urine Bacteria Urine Mucus Salicylates 2.6 (2.0-20.0) mg/dL Urine Opiates Screen (NEGATIVE) Ur Oxycodone Screen (NEGATIVE) Urine Methadone Screen (NEGATIVE) Ur Propoxyphene Screen (NEGATIVE) Acetaminophen 0.0 L (10.0-30.0) ug/mL Ur Barbiturates Screen (NEGATIVE) Ur Tricyclics Screen (NEGATIVE) Ur Phencyclidine Scrn (NEGATIVE) Ur Amphetamine Screen (NEGATIVE) U Methamphetamines Scrn (NEGATIVE) Urine MDMA Screen (NEGATIVE) U Benzodiazepines Scrn (NEGATIVE) U Cocaine Metab Screen (NEGATIVE) U Marijuana (THC) Screen (NEGATIVE) Ethyl Alcohol < 3 mg/dL Medications Discontinued Medications Generic Name Dose Route Start Last Admin Trade Name Kadie PRN Reason Stop Dose Admin Bacitracin 1 dose 08/19/20 10:56 Bacitracin Oint 1 Gm U/D Packet TOP 08/19/20 10:57 ONETIME ONE Re-Assessment/Re-Exam: Patient care turned over from Dr. Keys pending placement for 72-hour hold. After a few hours of rest the patient woke up, physically stable and not completely cooperative but did admit that she should not have called anybody because then she could "be where she wants to be". She would not be forthcoming about what medicine she overdosed on. She would not deny that she was not suicidal. Awaiting placement. Patient was offered breakfast but she says she will just "starve herself". Patient managed to take one of her earrings out and scratch her wrist superficially, so these were removed from the room as well. Scratch was covered with bacitracin and a Band-Aid. Patient was accepted at [facility], transportation will be arranged. Departure - Departure Time of Disposition: 13:53 Sepsis Event Note (ED) - Focused Exam Vital Signs: Vital Signs Temp Pulse Resp BP Pulse Ox 08/19/20 07:50 82 26 H 110/68 94 L 08/19/20 07:44 23 H 08/19/20 07:20 82 27 H 112/73 95 08/19/20 06:50 79 23 H 112/68 96 08/19/20 06:20 81 23 H 112/64 94 L 08/19/20 05:50 82 26 H 111/64 93 L 08/19/20 05:20 86 27 H 112/64 93 L 08/19/20 04:50 91 27 H 117/74 95 08/19/20 04:35 97.6 F 91 28 H 140/88 96 08/19/20 04:23 97.6 F 91 28 H 140/88 96
[2020-08-19] MEDS ORDERED: Bacitracin Oint 1 GM U/D Packet TOP ONE (10:56)
== END 2020-08-19 14:03 | disposition other institution (70) ==
LOC: JP.ED 04:10
DX: T50.902A Poisoning by unspecified drugs, medicaments and biological substances, intentional self-harm, initial encounter (principal); F32.9 Major depressive disorder, single episode, unspecified; J45.909 Unspecified asthma, uncomplicated; E66.9 Obesity, unspecified; Z68.41 Body mass index [BMI] 40.0-44.9, adult; Z88.2 Allergy status to sulfonamides; Z88.8 Allergy status to other drugs, medicaments and biological substances; Z79.899 Other long term (current) drug therapy
CPT/HCPCS: 36415; 80053; 80143; 80179; 80305-QW; 80307; 81001; 85025; 93005; 99285-25

== ENCOUNTER 2020-09-08 01:24 | Emergency (ER) | payer MEDICAID, OTHER ==
[2020-09-08] MEDS ORDERED: Sodium Chloride 0.9% 10 ML Syringe FLUSH PRN (01:42)
[2020-09-08] MEDS ORDERED: Albuterol/Ipratropium 3.0-0.5 MG/3 ML Neb Soln NEB ONE (01:42)
--- NOTE | 2020-09-08 01:47 | EDM.PDOC ---
ED HPI GENERAL MEDICAL PROBLEM - General Chief Complaint: Cardiovascular Problem Stated Complaint: SOB/LEGS SWOLLEN Time Seen by Provider: 09/08/20 01:35 Source of Information: Reports: Patient, Old Records History Limitations: Reports: No Limitations - History of Present Illness INITIAL COMMENTS - FREE TEXT/NARRATIVE: Bushra is a 35-year-old female presenting to the ED for central chest pain, difficulty breathing, and wheezing that started this evening. Patient also notes that she has had increased bilateral lower extremity edema that is worsened over the last week and is now quite painful. Patient does have a history for sarcoidosis and has had episodes of bilateral lower extremity edema in the past. She has not experienced previous episodes of this retrosternal ch est pain or difficulty breathing. She denies any diaphoresis, nausea or vomiting. She has previously been a smoker and occasionally continues to smoke although less frequently than when she was last seen by me. She denies any fever or chills, cough, constipation or diarrhea. chest pain Pain Score (Numeric/FACES): 7 - Related Data Allergies Allergy/AdvReac Type Severity Reaction Status Date / Time methotrexate Allergy Cannot Verified 09/08/20 01:36 Remember sulfamethoxazole Allergy Cannot Verified 09/08/20 01:36 [From Bactrim] Remember trimethoprim [From Bactrim] Allergy Cannot Verified 09/08/20 01:36 Remember Home Meds: Home Meds ALPRAZolam 2 mg PO QID PRN 09/03/19 [History] DULoxetine HCl [Cymbalta] 60 mg PO DAILY 09/03/19 [History] Dextroamphetamine/Amphetamine [Adderall] 30 mg PO DAILY 09/03/19 [History] Doxepin HCl [Doxepin] 100 mg PO BEDTIME 09/03/19 [History] Prazosin HCl [Prazosin] 5 mg PO BEDTIME PRN 09/03/19 [History] clonazePAM [Clonazepam] 2 mg PO BEDTIME PRN 09/03/19 [History] ondansetron HCL [Zofran] 4 mg PO Q8H PRN 09/03/19 [History] tiZANidine [Zanaflex] 2 mg PO TID 11/06/19 [History] Acetaminophen [Acetaminophen Extra Strength] 500 mg PO ASDIRECTED PRN 12/17/19 [History] Albuterol Sulfate [Albuterol Sulfate Hfa] 1 inh INH Q4H PRN 02/19/20 [History] Hydrocodone/Acetaminophen [[place] 5-325 Tablet] 1 tab PO Q4HR PRN 02/19/20 [History] Furosemide [Lasix] 20 mg PO QAM 5 Days #5 tablet 09/08/20 [Rx] Past Medical History Cardiovascular History: Reports: Arrhythmia Respiratory History: Reports: Asthma, Other (See Below) Other Respiratory History: sarcoidosis Genitourinary History: Reports: Urinary Incontinence POSITION CLASSIFIER History: Reports: Musculoskeletal History: Reports: Back Pain, Chronic, Other (See Below) Other Musculoskeletal History: torn ligament left leg Neurological History: Reports: Other (See Below) Other Neuro History: restless leg Psychiatric History: Reports: ADHD, Anxiety, Depression, Psych Hospitalization(s), Suicide Attempt, Suicidal Ideation Endocrine/Metabolic History: Reports: Obesity/BMI 30+ - Infectious Disease History Infectious Disease History: Reports: Chicken Pox, Herpes, Human Papilloma Virus (HPV), Mononucleosis - Past Surgical History HEENT Surgical History: Reports: Adenoidectomy, Tonsillectomy GI Surgical History: Reports: Hernia Repair/Other Female Surgical History: Reports: Section, Hysterectomy Neurological Surgical History: Reports: Lumbar Spine Social & Family History - Caffeine Use Caffeine Use: Reports: Coffee, Tea ED ROS GENERAL - Review of Systems Review Of Systems: See Below Constitutional: Reports: No Symptoms HEENT: Reports: No Symptoms Respiratory: Reports: Shortness of Breath, Wheezing Cardiovascular: Reports: Chest Pain Endocrine: Reports: Fatigue GI/Abdominal: Reports: No Symptoms : Reports: No Symptoms Musculoskeletal: Reports: No Symptoms Skin: Reports: No Symptoms Neurological: Reports: No Symptoms Psychiatric: Reports: No Symptoms Hematologic/Lymphatic: Reports: No Symptoms Immunologic: Reports: No Symptoms ED EXAM, GENERAL - Physical Exam Exam: See Below Exam Limited By: No Limitations General Appearance: Alert, Anxious, Mild Distress Throat/Mouth: Normal Inspection, Normal Oropharynx Head: Atraumatic, Normocephalic Neck: Normal Inspection, Supple Respiratory/Chest: Wheezing (Scant inspiratory and pronounced expiratory wheezes. Diminished breath sounds in the bases.). No: Crackles, Accessory Muscle Use, Retractions, Splinting Cardiovascular: Normal Peripheral Pulses, Regular Rate, Rhythm, No Murmur, Tachycardia Peripheral Pulses: 2+: Radial (R) GI/Abdominal: Normal Bowel Sounds, Soft, Non-Tender Extremities: Pedal Edema (2-3+ pitting edema to at least the knees.) Neurological: Alert, Oriented, Normal Cognition, No Motor/Sensory Deficits Psychiatric: Anxious, Flat Affect Skin Exam: Warm, Dry, Intact, Pallor. No: Erythema Lymphatic: No Adenopathy #1 Interpretation EKG Date: 09/08/20 Time: 01:46 Rhythm: NSR Rate (Beats/Min): 113 [place]: Normal P-Wave: Present QRS: Normal ST-T: Normal QT: Normal Comparison: No Change (No change when compared to EKG done on 08/19/2020.) Course - Vital Signs Last Recorded V/S: Last Vital Signs Temp 36.2 C 09/08/20 01:39 Pulse 118 H 09/08/20 01:39 Resp 22 H 09/08/20 01:39 BP 121/69 09/08/20 01:39 Pulse Ox 96 09/08/20 01:39 - Orders/Labs/Meds Orders: Active Orders 24 hr Category Date Time Status EKG Documentation Completion [RC] ASDIRECTED Care 09/08/20 01:42 Ordered RT Aerosol Therapy [RC] ASDIRECTED Care 09/08/20 01:42 Ordered Chest 2V [CR] Stat Exams 09/08/20 01:42 Ordered Sodium Chloride 0.9% [Saline Flush] Med 09/08/20 01:42 Ordered 10 ml FLUSH ASDIRECTED PRN Saline Lock Insert [OM.PC] Routine Oth 09/08/20 01:42 Ordered EKG 12 Lead [EK] Routine Ther 09/08/20 01:42 Ordered Medication Orders Sodium Chloride (Sodium Chloride 0.9% 10 Ml Syringe) 10 ml FLUSH ASDIRECTED PRN PRN Reason: Keep Vein Open Last Admin: 09/08/20 01:59 Dose: 10 ml Documented by: BRANDEE Labs: Laboratory Tests 09/08/20 09/08/20 Range/Units 01:50 01:50 WBC 9.7 (4.5-11.0) K/uL RBC 3.96 (3.30-5.50) M/uL Hgb 12.4 D (12.0-15.0) g/dL Hct 37.6 (36.0-48.0) % MCV 95 (80-98) fL MCH 31 (27-31) pg MCHC 33 (32-36) % Plt Count 248 (150-400) K/uL Neut % (Auto) 57.4 (36-66) % Lymph % (Auto) 30.6 (24-44) % [place] % (Auto) 7.7 H (2-6) % Eos % (Auto) 4.1 H (2-4) % Baso % (Auto) 0.2 (0-1) % Sodium 145 (140-148) mmol/L Potassium 3.8 (3.6-5.2) mmol/L Chloride 109 H (100-108) mmol/L Carbon Dioxide 29 (21-32) mmol/L Anion Gap 10.8 (5.0-14.0) mmol/L BUN 16 (7-18) mg/dL Creatinine 0.9 (0.6-1.0) mg/dL Est Cr Clr Drug Dosing 79.25 mL/min Estimated GFR (MDRD) > 60 (>60) Glucose 131 H (74-106) mg/dL Calcium 8.3 L (8.5-10.1) mg/dL Total Bilirubin < 0.1 L D (0.2-1.0) mg/dL AST 17 (15-37) U/L ALT 27 (12-78) U/L Alkaline Phosphatase 99 (46-116) U/L Troponin I < 0.017 (0.000-0.056) ng/mL C-Reactive Protein 2.17 H (0.0-0.3) mg/dL NT-Pro-B Natriuret Pep 26 (5-125) pg/mL Total Protein 5.8 L (6.4-8.2) g/dL Albumin 2.8 L (3.4-5.0) g/dL Globulin 3.0 (2.3-3.5) g/dL Albumin/Globulin Ratio 0.9 L (1.2-2.2) Meds: Medications Generic Name Dose Route Start Last Admin Trade Name Freq PRN Reason Stop Dose Admin Sodium Chloride 10 ml 09/08/20 01:42 09/08/20 01:59 Sodium Chloride 0.9% 10 Ml Syringe FLUSH 10 ml ASDIRECTED PRN Administration Keep Vein Open Discontinued Medications Generic Name Dose Route Start Last Admin Trade Name Freq PRN Reason Stop Dose Admin Albuterol/Ipratropium 3 ml 09/08/20 01:42 09/08/20 01:56 Albuterol/Ipratropium 3.0-0.5 Mg/3 Ml Neb Soln NEB 09/08/20 01:43 3 ml ONETIME ONE Administration Ketorolac Tromethamine 30 mg 09/08/20 02:21 Ketorolac 30 Mg/Ml Sdv IVPUSH 09/08/20 02:22 ONETIME ONE - Radiology Interpretation Free Text/Narrative:: I reviewed the chest x-ray and did not see any evidence for acute infiltrates, pleural effusions, pulmonary edema, or cardiomegaly. - Re-Assessments/Exams Free Text/Narrative Re-Assessment/Exam: 09/08/20 02:39 I reviewed the patient's labs showing a normal CBC with a leukocyte count of 9.7, hemoglobin of 12.4, hematocrit of 37.6 and a platelet count of 243,000. Her comprehensive metabolic panel is also unremarkable with a sodium 145, potassium 3.8, chloride of 109, bicarbonate of 29, BUN of 16 with a creatinine of 0.9 and a glucose of 131. Her calcium is 8.3 but she also has an albumin of 2.8 with her corrected calcium being 8.9. Her AST and ALT are both normal. Her troponin I is negative at less than 0.017. Her pro BNP is negative at 26 and her C-reactive protein is mildly elevated at 2.17. Her chest pain is likely pleuritic in nature with her wheezing being secondary to her history of smoking and sarcoidosis. She may have some degree of reactive airway disease to. She did receive a DuoNeb which did help with her breathing and decrease the wheezing, however, she still requested something for her chest pain. Her EKG is unremarkable for any acute findings other than sinus tachycardia. I do think that the majority of her symptoms are related to her sarcoidosis and probably bilateral lower extremity lymphedema. We will put her on Lasix 20 mg a day for 5 days to see if this helps decrease her fluid retention. I will also put her on oral Toradol 10 mg 4 times daily for the next 5 days to help with her pain. Her chest x-ray is unremarkable for any significant findings, although it was not a very deep inspiration compared to her previous chest x-ray. Departure - Departure Time of Disposition: 02:50 Disposition: Home, Self-Care Clinical Impression: Non-cardiac chest pain, Wheezing on exhalation, Peripheral edema Referrals: Consuelo Oh PA-C [Primary Care Provider] - Forms: ED Department Discharge Care Plan Goals: Your work-up today has shown that the pain that you are experiencing in the chest is likely due to a pleuritic chest pain arising from inflammation between the lining of your lung and the chest wall. We will put you on Toradol 10 mg 4 times a day for the next 5 days to reduce this inflammation and improve the pain. In addition, the swelling in your legs is likely due to lymphedema which is swelling due to the inability of the body to eliminate excess fluid. I am going to put you on a water pill called furosemide which you should take every morning for the next 5 days to help remove this excess fluid and decrease the swelling. There was no evidence in your work-up today of any injury to the heart or infection in the lungs. The chest pain is likely due to a viral infection causing inflammation in the pleural space which is why it increases when you take a deeper breath. The prescription for Toradol has been sent out to the [facility] so that you may continue it overnight through the next 5 days. Sepsis Event Note (ED) - Evaluation Sepsis Screening Result: No Definite Risk - Focused Exam Vital Signs: Vital Signs Temp Pulse Resp BP Pulse Ox 09/08/20 01:39 36.2 C 118 H 22 H 121/69 96 09/08/20 01:37 36.2 C 118 H 22 H 121/69 96 - Problem List & Annotations (1) Non-cardiac chest pain SNOMED Code(s): 119828816 Code(s): R07.89 - OTHER CHEST PAIN Status: Acute Priority: High Current Visit: Yes (2) Peripheral edema SNOMED Code(s): 202965609 Code(s): R60.9 - EDEMA, UNSPECIFIED Status: Acute Priority: High Current Visit: Yes (3) Wheezing on exhalation SNOMED Code(s): 7744778 Code(s): R06.2 - WHEEZING Status: Acute Priority: High Current Visit: Yes - Problem List Review Problem List Initiated/Reviewed/Updated: Yes - My Orders Last 24 Hours: My Active Orders 09/08/20 01:42 EKG Documentation Completion [RC] ASDIRECTED RT Aerosol Therapy [RC] ASDIRECTED Chest 2V [CR] Stat Sodium Chloride 0.9% [Saline Flush] 10 ml FLUSH ASDIRECTED PRN Saline Lock Insert [OM.PC] Routine EKG 12 Lead [EK] Routine - Assessment/Plan Last 24 Hours: My Active Orders 09/08/20 01:42 EKG Documentation Completion [RC] ASDIRECTED RT Aerosol Therapy [RC] ASDIRECTED Chest 2V [CR] Stat Sodium Chloride 0.9% [Saline Flush] 10 ml FLUSH ASDIRECTED PRN Saline Lock Insert [OM.PC] Routine EKG 12 Lead [EK] Routine
[2020-09-08] MEDS ORDERED: Ketorolac 30 MG/ML SDV IVPUSH ONE (02:21)
--- NOTE | 2020-09-08 04:47 | CRLCR ---
For Patients: As a result of the Century Cures Act, medical imaging exams and procedure reports are released immediately into your electronic medical record. You may view this report before your referring provider. If you have questions, please contact your health care provider. INDICATION: Chest pain wheezing TECHNIQUE: Chest radiograph 2 views COMPARISON: 04/21/2020 FINDINGS: Moderate degradation of image quality noted due to body habitus. Mediastinum: The mediastinum is normal in appearance. The heart silhouette is normal in size and morphology. Lung: Small lung volumes are present with bibasilar patchy ground-glass opacities noted. No sign of pleural effusion seen. No pneumothorax is identified. Bone and Soft tissue: Unremarkable for age. IMPRESSION: 1. Small lung volumes are present with bibasilar patchy ground-glass opacities noted. Dictated by Aric Moreira MD @ 09/08/2020 4:45:53 AM Dictated by: Aric Moreira MD @ 09/08/2020 04:46:02 (Electronically Signed)
== END 2020-09-08 03:10 | disposition home or self-care (01) ==
LOC: JP.ED 01:24
DX: R07.9 Chest pain, unspecified (principal); R60.0 Localized edema; J45.909 Unspecified asthma, uncomplicated; E66.9 Obesity, unspecified; Z68.42 Body mass index [BMI] 45.0-49.9, adult; Z88.1 Allergy status to other antibiotic agents; Z88.8 Allergy status to other drugs, medicaments and biological substances
CPT/HCPCS: 36415; 71046; 80053; 83880; 84484; 85025; 86140; 93005; 94640; 96374; 99285; J1885; J7620-GY

== ENCOUNTER 2022-01-03 08:25 | Inpatient (IN) | payer MEDICAID ==
[~2022-01-03 08:25] MED LIST: Bupivacaine 0.5% 30 ML SDV ONE
[2022-01-03] MEDS ORDERED: Nozin Nasal Sanitizer NASBOTH SCH (09:00)
[2022-01-03] MEDS ORDERED: Lactated Ringers 1,000 ML IV SCH (09:30)
[2022-01-03] MEDS ORDERED: ceFAZolin 2 GM in Sodium Chloride 0.9% 50 ML IV ONE (09:45)
[2022-01-03] MEDS ORDERED: Glycopyrrolate 0.2 MG/ML 5 ML MDV ONE (10:23)
[2022-01-03] MEDS ORDERED: Succinylcholine 200 MG/10 ML MDV ONE (10:23)
[2022-01-03] MEDS ORDERED: Dexamethasone 4 MG/ML SDV ONE (10:23)
[2022-01-03] MEDS ORDERED: Rocuronium 50 MG/5 ML Vial ONE (10:23)
[2022-01-03] MEDS ORDERED: Neostigmine Methylsulfate 1 MG/ML 5 ML Syringe ONE (10:23)
[2022-01-03] MEDS ORDERED: Midazolam 1 MG/ML 2 ML SDV ONE (10:23)
[2022-01-03] MEDS ORDERED: fentaNYL 250 MCG/5 ML SDV ONE ×3 (10:23→12:13)
[2022-01-03] MEDS ORDERED: Propofol 200 MG/20 ML SDV ONE (10:23)
[2022-01-03] MEDS ORDERED: Ondansetron 4 MG/2 ML SDV ONE (10:23)
[2022-01-03] MEDS ORDERED: Lactated Ringers 1,000 ML ONE (11:57)
[2022-01-03] MEDS ORDERED: Ondansetron 4 MG/2 ML SDV IVPUSH PRN (12:21)
[2022-01-03] MEDS ORDERED: Magnesium Hydroxide 400 MG/5 ML Susp 30 ML Cup PO PRN (12:21)
[2022-01-03] MEDS ORDERED: Acetaminophen/HYDROcodone 325-5 MG Tab PO PRN (12:21)
[2022-01-03] MEDS ORDERED: SUMAtriptan 50 MG Tab PO PRN (12:28)
[2022-01-03] MEDS ORDERED: Non-Formulary Medication 1 Each (Prazosin Hcl [Prazosin] 2 MG Capsule) PO PRN (12:28)
[2022-01-03] MEDS ORDERED: Albuterol 90 MCG/6.7 GM Inhaler INH PRN (12:28)
[2022-01-03] MEDS ORDERED: Rizatriptan 10 MG Tab.DIS PO PRN (12:28)
[2022-01-03] MEDS ORDERED: ALPRAZOLAM 2 MG PO PRN (12:28)
[2022-01-03] MEDS ORDERED: ceFAZolin 1 GM in Sodium Chloride 0.9% 50 ML IV SCH (12:30)
[2022-01-03] MEDS ORDERED: ClonazePAM 1 MG Tab PO PRN (12:38)
[2022-01-03] MEDS: Sodium Chloride 0.9% 1,000 ML IV SCH ×3 (14:15→23:05)
[2022-01-03] MEDS: Morphine 2 MG/ML SYRINGE IVPUSH PRN ×2 (14:17→19:03)
[2022-01-03] MEDS ORDERED: ALPRAZolam 0.5 MG Tab PO PRN (14:34)
[2022-01-03] MEDS: Ketorolac 30 MG/ML SDV IVPUSH SCH ×2 (14:52→22:12)
[2022-01-03] MEDS: tiZANidine 2 MG Tab PO SCH ×2 (14:55→20:44)
[2022-01-03] MEDS: oxyCODONE 5 MG Tab PO PRN ×2 (16:35→20:46)
[2022-01-03] MEDS: Acetaminophen 325 MG Tab PO SCH ×2 (16:37→22:13)
[2022-01-03] MEDS: ceFAZolin 1 GM in Premix Bag 1 BAG IV SCH (18:34)
[2022-01-03] MEDS: Nozin Nasal Sanitizer NASBOTH SCH (20:42)
[2022-01-03] MEDS: Docusate Sodium 100 MG Cap PO SCH (20:43)
[2022-01-03] MEDS: DULoxetine 30 MG Cap PO SCH (20:43)
[2022-01-03] MEDS ORDERED: Doxepin 25 MG Cap PO SCH (21:00)
[2022-01-03] MEDS ORDERED: Non-Formulary Medication 1 Each (Duloxetine Hcl [Cymbalta] 60 MG Capsule.Dr) PO SCH (21:00)
[2022-01-03] MEDS ORDERED: DOXEPIN HCL 100 MG PO SCH (21:00)
[2022-01-04] MEDS ORDERED: Acetaminophen/oxyCODONE 325-5 MG Tab PO SCH
[2022-01-04] MEDS: ceFAZolin 1 GM in Premix Bag 1 BAG IV SCH (03:10)
[2022-01-04] MEDS: Acetaminophen 325 MG Tab PO SCH ×2 (03:15→09:08)
[2022-01-04] MEDS: Ketorolac 30 MG/ML SDV IVPUSH SCH (05:54)
[2022-01-04] MEDS: Sodium Chloride 0.9% 1,000 ML IV SCH (07:09)
[2022-01-04] MEDS: oxyCODONE 5 MG Tab PO PRN (07:26)
[2022-01-04] MEDS: Docusate Sodium 100 MG Cap PO SCH (08:22)
[2022-01-04] MEDS: Nozin Nasal Sanitizer NASBOTH SCH (08:22)
[2022-01-04] MEDS: DULoxetine 30 MG Cap PO SCH (08:23)
[2022-01-04] MEDS: tiZANidine 2 MG Tab PO SCH (08:23)
[2022-01-04] MEDS ORDERED: Non-Formulary Medication 1 Each (Dextroamphetamine/Amphetamine [Adderall] 30 MG Tablet) PO SCH (09:00)
[2022-01-04] MEDS ORDERED: Verapamil 120 MG Tab.ER PO SCH (09:00)
[2022-01-04] MEDS ORDERED: Furosemide 20 MG Tab PO SCH (09:00)
[2022-01-04] MEDS ORDERED: VERAPAMIL 120 MG PO SCH (09:00)
[2022-01-04] MEDS ORDERED: Furosemide 40 MG Tab PO SCH (09:00)
[2022-01-04] MEDS ORDERED: Acetaminophen/oxyCODONE 325-5 MG Tab PO PRN (11:10)
== END 2022-01-04 11:17 | disposition home or self-care (01) | DRG 470 ==
LOC: JP.SDS 08:25 → JP.MS 12:21
PROVIDERS: ADMIT Specialist; ATTEND Specialist
PROC: 0SRD0J9 Replacement of Left Knee Joint with Synthetic Substitute, Cemented, Open Approach (ICD-10-PCS; principal; 2022-01-03)
DX: M17.12 Unilateral primary osteoarthritis, left knee (principal); Z68.43 Body mass index [BMI] 50.0-59.9, adult; D86.0 Sarcoidosis of lung; E66.01 Morbid (severe) obesity due to excess calories; G25.81 Restless legs syndrome; F32.A Depression, unspecified; F41.1 Generalized anxiety disorder; Z88.8 Allergy status to other drugs, medicaments and biological substances; Z88.2 Allergy status to sulfonamides; Z79.899 Other long term (current) drug therapy
CPT/HCPCS: 36415; 73560-26-LT; 73560-LT; 80048; 85027; 97161-GP; A9270-GY; C1713; C1776; J0330; J0690; J1100; J1885; J2250; J2270; J2405; J2704; J2710; J3010; J3490; J7030; J7120

== ENCOUNTER 2022-01-22 12:11 | Inpatient (IN) | payer MEDICAID ==
[2022-01-22] MEDS ORDERED: HYDROmorphone 1 MG/ML Syringe IVPUSH ONE (13:28)
[2022-01-22] MEDS ORDERED: Sodium Chloride 0.9% 10 ML Syringe FLUSH PRN (13:29)
[2022-01-22] MEDS ORDERED: fentaNYL 250 MCG/5 ML SDV ONE ×3 (15:12→16:25)
[2022-01-22] MEDS ORDERED: Midazolam 1 MG/ML 2 ML SDV ONE ×2 (15:12→17:43)
[2022-01-22] MEDS ORDERED: Glycopyrrolate 0.2 MG/ML 5 ML MDV ONE (15:13)
[2022-01-22] MEDS ORDERED: Rocuronium 50 MG/5 ML Vial ONE (15:13)
[2022-01-22] MEDS ORDERED: Ondansetron 4 MG/2 ML SDV ONE (15:13)
[2022-01-22] MEDS ORDERED: Neostigmine Methylsulfate 1 MG/ML 5 ML Syringe ONE (15:13)
[2022-01-22] MEDS ORDERED: Succinylcholine 200 MG/10 ML MDV ONE (15:13)
[2022-01-22] MEDS ORDERED: Propofol 200 MG/20 ML SDV ONE (15:13)
[2022-01-22] MEDS ORDERED: Dexamethasone 4 MG/ML SDV ONE (15:13)
[2022-01-22] MEDS ORDERED: ceFAZolin 1 GM Vial ONE (15:59)
[2022-01-22] MEDS ORDERED: Sodium Chloride 0.9% 10 ML ONE ×2 (15:59→17:21)
[2022-01-22] MEDS ORDERED: Lactated Ringers 1,000 ML ONE ×2 (16:01→17:33)
[2022-01-22 16:02] LABS: CORONAVIRUS COVID-19 NAA NEGATIVE (NEGATIVE)
[2022-01-22] MEDS: Bupivacaine 0.5% 30 ML SDV ONE ×4 (16:14→16:51)
[2022-01-22] MEDS ORDERED: Labetalol 20 MG/4 ML Syringe ONE (16:35)
[2022-01-22] MEDS ORDERED: Ondansetron 4 MG/2 ML SDV IVPUSH PRN (17:12)
[2022-01-22] MEDS ORDERED: Rizatriptan 10 MG Tab.DIS PO PRN (17:20)
[2022-01-22] MEDS ORDERED: SUMAtriptan 50 MG Tab PO PRN (17:20)
[2022-01-22] MEDS ORDERED: Naloxone 0.4 MG/ML SDV ONE (17:21)
[2022-01-22] MEDS: Albuterol/Ipratropium 3.0-0.5 MG/3 ML Neb Soln ONE ×2 (17:30→18:46)
[2022-01-22] MEDS ORDERED: fentaNYL 100 MCG/2 ML SDV ONE ×2 (17:45→18:05)
[2022-01-22] MEDS ORDERED: ALPRAZolam 0.5 MG Tab PO PRN (19:43)
[2022-01-22] MEDS: Acetaminophen 325 MG Tab PO SCH (19:59)
[2022-01-22] MEDS: Ketorolac 30 MG/ML SDV IVPUSH SCH (20:01)
[2022-01-22] MEDS: Sodium Chloride 0.9% 1,000 ML IV SCH (20:19)
[2022-01-22] MEDS: Docusate Sodium 100 MG Cap PO SCH (21:50)
[2022-01-22] MEDS: DULoxetine 30 MG Cap PO SCH (21:50)
[2022-01-22] MEDS: tiZANidine 2 MG Tab PO SCH (21:50)
[2022-01-22] MEDS ORDERED: Doxepin 25 MG Cap ONE (22:01)
[2022-01-22] MEDS: Nozin Nasal Sanitizer NASBOTH SCH (22:40)
[2022-01-22] MEDS: Doxepin 25 MG Cap PO SCH (22:42)
[2022-01-22] MEDS: Prazosin 1 MG Cap PO SCH (22:43)
[2022-01-22] MEDS: oxyCODONE 5 MG Tab PO PRN (22:45)
[2022-01-22] MEDS: Morphine 2 MG/ML SYRINGE IVPUSH PRN (23:37)
[2022-01-23] MEDS: ClonazePAM 1 MG Tab PO PRN ×2 (00:10→20:51)
[2022-01-23] MEDS: Morphine 2 MG/ML SYRINGE IVPUSH PRN ×3 (00:42→04:42)
[2022-01-23] MEDS ORDERED: ceFAZolin 1 GM in Sodium Chloride 0.9% 50 ML IV SCH (02:00)
[2022-01-23] MEDS: Acetaminophen 325 MG Tab PO SCH ×4 (02:04→19:54)
[2022-01-23] MEDS: oxyCODONE 5 MG Tab PO PRN ×3 (03:39→12:19)
[2022-01-23] MEDS: Ketorolac 30 MG/ML SDV IVPUSH SCH ×3 (03:42→19:28)
[2022-01-23] MEDS: Sodium Chloride 0.9% 1,000 ML IV SCH ×3 (05:50→20:32)
[2022-01-23] MEDS: Nozin Nasal Sanitizer NASBOTH SCH ×2 (09:17→20:51)
[2022-01-23] MEDS: DULoxetine 30 MG Cap PO SCH ×2 (09:18→20:51)
[2022-01-23] MEDS: Furosemide 40 MG Tab PO SCH (09:18)
[2022-01-23] MEDS: tiZANidine 2 MG Tab PO SCH ×3 (09:18→20:52)
[2022-01-23] MEDS: Docusate Sodium 100 MG Cap PO SCH ×2 (09:19→20:51)
[2022-01-23] MEDS: Verapamil 120 MG Tab.ER PO SCH (09:20)
[2022-01-23] MEDS: traMADol 50 MG Tab PO PRN ×2 (09:30→17:17)
[2022-01-23] MEDS ORDERED: ceFAZolin 1 GM in Premix Bag 1 BAG IV SCH (10:00)
[2022-01-23] MEDS: HYDROmorphone 1 MG/ML Syringe IVPUSH PRN ×2 (18:41→21:59)
[2022-01-23] MEDS: Doxepin 25 MG Cap PO SCH (20:51)
[2022-01-23] MEDS: Prazosin 1 MG Cap PO SCH (20:51)
[2022-01-24] MEDS: Acetaminophen 325 MG Tab PO SCH ×5 (02:51→19:16)
[2022-01-24] MEDS: Sodium Chloride 0.9% 1,000 ML IV SCH ×2 (04:36→13:23)
[2022-01-24] MEDS: HYDROmorphone 1 MG/ML Syringe IVPUSH PRN ×4 (05:10→22:53)
[2022-01-24] MEDS: Albuterol 90 MCG/6.7 GM Inhaler INH PRN (07:25)
[2022-01-24] MEDS: Docusate Sodium 100 MG Cap PO SCH ×2 (08:38→20:39)
[2022-01-24] MEDS: Verapamil 120 MG Tab.ER PO SCH (08:38)
[2022-01-24] MEDS: tiZANidine 2 MG Tab PO SCH ×3 (08:38→20:40)
[2022-01-24] MEDS: DULoxetine 30 MG Cap PO SCH ×2 (08:38→20:39)
[2022-01-24] MEDS: Nozin Nasal Sanitizer NASBOTH SCH ×2 (08:39→20:38)
[2022-01-24] MEDS: Furosemide 40 MG Tab PO SCH (08:39)
[2022-01-24] MEDS: Magnesium Hydroxide 400 MG/5 ML Susp 30 ML Cup PO PRN (17:40)
[2022-01-24] MEDS: Prazosin 1 MG Cap PO SCH (20:39)
[2022-01-24] MEDS: Doxepin 25 MG Cap PO SCH (20:40)
[2022-01-24] MEDS: ClonazePAM 1 MG Tab PO PRN (20:40)
[2022-01-25] MEDS: Albuterol 90 MCG/6.7 GM Inhaler INH PRN ×2 (01:54→06:01)
[2022-01-25] MEDS: Acetaminophen 325 MG Tab PO SCH ×3 (01:56→14:06)
[2022-01-25] MEDS: Magnesium Hydroxide 400 MG/5 ML Susp 30 ML Cup PO PRN (06:00)
[2022-01-25] MEDS: HYDROmorphone 1 MG/ML Syringe IVPUSH PRN (07:15)
[2022-01-25] MEDS: traMADol 50 MG Tab PO PRN ×2 (08:08→14:07)
[2022-01-25] MEDS: Verapamil 120 MG Tab.ER PO SCH (08:36)
[2022-01-25] MEDS: Nozin Nasal Sanitizer NASBOTH SCH (08:36)
[2022-01-25] MEDS: tiZANidine 2 MG Tab PO SCH ×2 (08:38→14:06)
[2022-01-25] MEDS: Docusate Sodium 100 MG Cap PO SCH (08:39)
[2022-01-25] MEDS: Furosemide 40 MG Tab PO SCH (08:39)
[2022-01-25] MEDS: DULoxetine 30 MG Cap PO SCH (08:39)
== END 2022-01-25 14:43 | disposition home or self-care (01) | DRG 488 ==
LOC: JP.ED 12:11 → JP.SDS 15:25 → JP.MS 18:30 → JP.SDS 01-23 11:30
PROVIDERS: ADMIT Specialist; ATTEND Specialist
PROC: 0SND0ZZ Release Left Knee Joint, Open Approach (ICD-10-PCS; principal; 2022-01-22)
PROC: 0SQD0ZZ Repair Left Knee Joint, Open Approach (ICD-10-PCS; principal; 2022-01-22)
DX: S86.912A Strain of unspecified muscle(s) and tendon(s) at lower leg level, left leg, initial encounter (principal); Z68.43 Body mass index [BMI] 50.0-59.9, adult; W00.0XXA Fall on same level due to ice and snow, initial encounter; S76.912A Strain of unspecified muscles, fascia and tendons at thigh level, left thigh, initial encounter; M25.562 Pain in left knee; Z96.652 Presence of left artificial knee joint; Z20.822 Contact with and (suspected) exposure to COVID-19; R32 Unspecified urinary incontinence; M54.9 Dorsalgia, unspecified; G89.29 Other chronic pain; F90.9 Attention-deficit hyperactivity disorder, unspecified type; F41.9 Anxiety disorder, unspecified; F32.A Depression, unspecified; E66.9 Obesity, unspecified; Z96.659 Presence of unspecified artificial knee joint; W19.XXXA Unspecified fall, initial encounter; Z86.19 Personal history of other infectious and parasitic diseases; Z90.89 Acquired absence of other organs; Z90.710 Acquired absence of both cervix and uterus; Z79.899 Other long term (current) drug therapy; Z88.8 Allergy status to other drugs, medicaments and biological substances; Z88.1 Allergy status to other antibiotic agents; Z88.2 Allergy status to sulfonamides
CPT/HCPCS: 0241U; 72170; 72170-26; 73552-26-LT; 73552-LT; 73560-26-LT; 73560-LT; 94640; 96374; 97110-GP; 97165-GO; 97530-GP; 97535-GO; 99284-25; A9270-GY; J0330; J0690; J1100; J1170; J1885; J2250; J2270; J2310; J2405; J2704; J2710; J3010; J3490; J7030; J7120; J7620

== ENCOUNTER 2022-04-16 07:45 | Day surgery (SDC) | payer MEDICAID ==
[~2022-04-16 07:45] MED LIST changes: -Bupivacaine 0.5% 30 ML SDV ONE; +Bupivacaine 0.5% 50 ML MDV ONE
[2022-04-16] MEDS ORDERED: fentaNYL 250 MCG/5 ML SDV ONE ×2 (08:22→11:30)
[2022-04-16] MEDS ORDERED: Dexamethasone 4 MG/ML SDV ONE (08:23)
[2022-04-16] MEDS ORDERED: Neostigmine Methylsulfate 1 MG/ML 5 ML Syringe ONE (08:23)
[2022-04-16] MEDS ORDERED: Glycopyrrolate 0.2 MG/ML 5 ML MDV ONE (08:23)
[2022-04-16] MEDS ORDERED: Rocuronium 50 MG/5 ML Vial ONE (08:23)
[2022-04-16] MEDS ORDERED: Propofol 200 MG/20 ML SDV ONE ×2 (08:23→11:12)
[2022-04-16] MEDS ORDERED: Succinylcholine 200 MG/10 ML MDV ONE (08:23)
[2022-04-16] MEDS ORDERED: Ondansetron 4 MG/2 ML SDV ONE (08:23)
[2022-04-16 08:30] LABS: ESTIMATED GFR 86 mL/min (>60)
[2022-04-16] MEDS: Nozin Nasal Sanitizer NASBOTH SCH ×2 (08:50→20:03)
[2022-04-16] MEDS ORDERED: Lactated Ringers 1,000 ML IV SCH (09:00)
[2022-04-16] MEDS ORDERED: ceFAZolin 2 GM in Sodium Chloride 0.9% 50 ML IV ONE (09:30)
[2022-04-16] MEDS ORDERED: ceFAZolin 2 GM in Premix Bag 1 BAG IV ONE (09:30)
[2022-04-16] MEDS ORDERED: Oxymetazoline 0.05% Nasal Spray 30 ML Bottle ONE (11:39)
[2022-04-16] MEDS ORDERED: Sodium Chloride 0.9% 10 ML ONE (11:40)
[2022-04-16] MEDS ORDERED: Lactated Ringers 1,000 ML ONE (11:46)
[2022-04-16] MEDS ORDERED: Labetalol 20 MG/4 ML Syringe ONE (11:48)
[2022-04-16] MEDS ORDERED: Bupivacaine 0.5% 50 ML MDV INJECT ONE ×2 (11:58→12:21)
[2022-04-16] MEDS ORDERED: Acetaminophen/HYDROcodone 325-5 MG Tab PO PRN (12:46)
[2022-04-16] MEDS ORDERED: Magnesium Hydroxide 400 MG/5 ML Susp 30 ML Cup PO PRN (12:46)
[2022-04-16] MEDS ORDERED: CLONAZEPAM 2 MG PO PRN (12:58)
[2022-04-16] MEDS ORDERED: ALPRAZOLAM 2 MG PO PRN (12:58)
[2022-04-16] MEDS ORDERED: Non-Formulary Medication 1 Each (Ondansetron Hcl [Zofran] 4 MG Tablet) PO PRN (12:58)
[2022-04-16] MEDS ORDERED: Albuterol 90 MCG/6.7 GM Inhaler INH PRN (12:58)
[2022-04-16] MEDS ORDERED: Rizatriptan 10 MG Tab.DIS PO PRN (12:58)
[2022-04-16] MEDS ORDERED: oxyCODONE 5 MG Tab PO PRN (13:01)
[2022-04-16] MEDS ORDERED: HYDROmorphone 0.5 MG/0.5 ML Syringe IVPUSH PRN (13:03)
[2022-04-16] MEDS ORDERED: ALPRAZolam 0.5 MG Tab PO PRN (13:17)
[2022-04-16] MEDS ORDERED: Ondansetron 4 MG Tab.DIS PO PRN (13:23)
[2022-04-16] MEDS ORDERED: ClonazePAM 1 MG Tab PO PRN (13:24)
[2022-04-16] MEDS: Sodium Chloride 0.9% 1,000 ML IV SCH ×2 (13:53→23:18)
[2022-04-16] MEDS: Ketorolac 30 MG/ML SDV IVPUSH SCH ×2 (14:29→21:49)
[2022-04-16] MEDS: tiZANidine 2 MG Tab PO SCH ×2 (14:29→20:03)
[2022-04-16] MEDS: ceFAZolin 1 GM in Premix Bag 1 BAG IV SCH ×2 (15:50→23:17)
[2022-04-16] MEDS: Acetaminophen 325 MG Tab PO SCH ×2 (15:50→21:47)
[2022-04-16] MEDS ORDERED: HYDROmorphone 1 MG/ML Syringe IVPUSH PRN (17:14)
[2022-04-16] MEDS: traMADol 50 MG Tab PO PRN (17:30)
[2022-04-16] MEDS: Docusate Sodium 100 MG Cap PO SCH (20:00)
[2022-04-16] MEDS: DULoxetine 30 MG Cap PO SCH (20:03)
[2022-04-16] MEDS: oxyCODONE 5 MG Tab PO PRN (20:06)
[2022-04-16] MEDS ORDERED: Nozin Nasal Sanitizer NASBOTH SCH (21:00)
[2022-04-16] MEDS ORDERED: DOXEPIN HCL 100 MG PO SCH (21:00)
[2022-04-16] MEDS ORDERED: Non-Formulary Medication 1 Each (Duloxetine Hcl [Cymbalta] 60 MG Capsule.Dr) PO SCH (21:00)
[2022-04-16] MEDS ORDERED: Doxepin 25 MG Cap PO SCH (21:00)
[2022-04-17] MEDS: oxyCODONE 5 MG Tab PO PRN ×3 (04:29→13:41)
[2022-04-17] MEDS: Acetaminophen 325 MG Tab PO SCH ×2 (04:30→09:53)
[2022-04-17] MEDS: Ketorolac 30 MG/ML SDV IVPUSH SCH ×2 (05:00→13:41)
[2022-04-17] MEDS: traMADol 50 MG Tab PO PRN (07:42)
[2022-04-17] MEDS: ceFAZolin 1 GM in Premix Bag 1 BAG IV SCH (07:44)
[2022-04-17] MEDS: DULoxetine 30 MG Cap PO SCH (08:48)
[2022-04-17] MEDS: Docusate Sodium 100 MG Cap PO SCH (08:48)
[2022-04-17] MEDS: tiZANidine 2 MG Tab PO SCH ×2 (08:49→13:41)
[2022-04-17] MEDS: Nozin Nasal Sanitizer NASBOTH SCH (08:53)
[2022-04-17] MEDS ORDERED: Non-Formulary Medication 1 Each (Amphetamine/Dextroamphetamine [Adderall Xr] 30 MG Cap.Er) PO SCH (09:00)
[2022-04-17] MEDS ORDERED: Verapamil 120 MG Tab.ER PO SCH (09:00)
[2022-04-17] MEDS ORDERED: Furosemide 40 MG Tab PO SCH (09:00)
== END 2022-04-17 14:46 | disposition home or self-care (01) ==
LOC: JP.SDS 07:45 → JP.MS 12:46 → JP.SDS 04-17 14:46
PROVIDERS: ATTEND Specialist
DX: M17.11 Unilateral primary osteoarthritis, right knee (principal); M24.19 Other articular cartilage disorders, other specified site; F41.9 Anxiety disorder, unspecified; F43.10 Post-traumatic stress disorder, unspecified; Z79.899 Other long term (current) drug therapy
CPT/HCPCS: 36415; 73560-26-RT; 73560-RT; 80053; 85027; 97110-GP; 97116-GP; 97161-GP; 97530-GP; 97535-GP; A9270-GY; C1713; C1776; J0330; J0690; J1100; J1170; J1885; J2405; J2704; J2710; J3010; J3490; J7030; J7120

== ENCOUNTER 2022-06-20 08:47 | Day surgery (SDC) | payer MEDICAID ==
[2022-06-20 09:14] LABS: HEMATOCRIT 45.6 % (34.3-46.0); HEMOGLOBIN 14.7 g/dL (11.2-15.5); MEAN CORPUSCULAR HEMOGLOBIN 29.9 pg (31.6-35.5); MEAN CORPUSCULAR HGB CONC 32.2 g/dL (31.6-35.5); MEAN CORPUSCULAR VOLUME 92.7 fL (81.4-99.0); RED BLOOD CELL COUNT 4.92 M/uL (3.77-5.24); WHITE BLOOD CELL COUNT,WBC 8.8 K/uL (3.2-11.0)
[2022-06-20] MEDS ORDERED: Nozin Nasal Sanitizer NASBOTH ONE (09:30)
[2022-06-20] MEDS ORDERED: Lactated Ringers 1,000 ML IV SCH (09:30)
[2022-06-20 09:31] LABS: CALCIUM 8.8 mg/dL (8.5-10.1); EST CRCL DRUG DOSING (CG) 70.66 mL/min; POTASSIUM,K 3.7 mmol/L (3.6-5.2)
[2022-06-20 09:32] LABS: ANION GAP 12.7 mmol/L (5.0-14.0)
[2022-06-20] MEDS ORDERED: ceFAZolin 2 GM in Premix Bag 1 BAG IV ONE (10:00)
[2022-06-20] MEDS ORDERED: Albuterol/Ipratropium 3.0-0.5 MG/3 ML Neb Soln NEB ONE (10:12)
[2022-06-20] MEDS ORDERED: Neostigmine Methylsulfate 1 MG/ML 5 ML Syringe ONE (10:47)
[2022-06-20] MEDS ORDERED: Succinylcholine 200 MG/10 ML MDV ONE (10:47)
[2022-06-20] MEDS ORDERED: Dexamethasone 4 MG/ML SDV ONE (10:47)
[2022-06-20] MEDS ORDERED: Rocuronium 50 MG/5 ML Vial ONE (10:47)
[2022-06-20] MEDS ORDERED: Ondansetron 4 MG/2 ML SDV ONE (10:47)
[2022-06-20] MEDS ORDERED: Glycopyrrolate 0.2 MG/ML 5 ML MDV ONE (10:47)
[2022-06-20] MEDS ORDERED: Propofol 200 MG/20 ML SDV ONE (10:47)
[2022-06-20] MEDS ORDERED: Midazolam 1 MG/ML 2 ML SDV ONE (10:47)
[2022-06-20] MEDS ORDERED: Lactated Ringers 1,000 ML ONE (12:52)
[2022-06-20] MEDS ORDERED: fentaNYL 250 MCG/5 ML SDV ONE (13:09)
[2022-06-20] MEDS ORDERED: Sugammadex Sodium 200 MG/2 ML VIAL ONE (13:28)
[2022-06-20] MEDS ORDERED: Morphine 2 MG/ML SYRINGE IVPUSH ONE (14:15)
[2022-06-20] MEDS ORDERED: Ketorolac 30 MG/ML SDV IM ONE (14:26)
[2022-06-20] MEDS ORDERED: Acetaminophen 1,000 MG in Premix Bag 1 BAG IV ONE (14:30)
[2022-06-20] MEDS ORDERED: Ketorolac 30 MG/ML SDV IVPUSH ONE (14:45)
== END 2022-06-20 17:05 | disposition home or self-care (01) ==
LOC: JP.SDS 08:47
PROVIDERS: ATTEND Specialist
DX: M25.362 Other instability, left knee (principal); F41.9 Anxiety disorder, unspecified; F32.A Depression, unspecified; G25.81 Restless legs syndrome; F43.10 Post-traumatic stress disorder, unspecified; F17.200 Nicotine dependence, unspecified, uncomplicated; E66.9 Obesity, unspecified; Z68.42 Body mass index [BMI] 45.0-49.9, adult; Z88.1 Allergy status to other antibiotic agents; Z88.8 Allergy status to other drugs, medicaments and biological substances
CPT/HCPCS: 27422; 36415; 76000; 80048; 85027; 94640; A9270; C1713; J0131; J0330; J1100; J1885; J2250; J2270; J2405; J2704; J2710; J3010; J3490; J7120; J7620

== ENCOUNTER 2022-07-27 16:39 | Emergency (ER) | payer MEDICAID | END 2022-07-27 19:12 | disposition home or self-care (01) | LOC: JP.ED 16:39 | DX: M25.362 Other instability, left knee (principal); J45.909 Unspecified asthma, uncomplicated; E66.9 Obesity, unspecified; Z68.42 Body mass index [BMI] 45.0-49.9, adult; Z88.1 Allergy status to other antibiotic agents; Z88.8 Allergy status to other drugs, medicaments and biological substances; Z88.2 Allergy status to sulfonamides; Z79.899 Other long term (current) drug therapy | CPT/HCPCS: 73562-26-LT; 73562-LT; 99283 ==

== ENCOUNTER 2022-07-29 19:50 | Emergency (ER) | payer MEDICAID ==
[2022-07-29] MEDS ORDERED: HYDROmorphone 1 MG/ML Syringe IM ONE (21:12)
== END 2022-07-29 23:46 | disposition home or self-care (01) ==
LOC: JP.ED 19:50
DX: M25.561 Pain in right knee (principal); J45.909 Unspecified asthma, uncomplicated; E66.9 Obesity, unspecified; F17.210 Nicotine dependence, cigarettes, uncomplicated; Z98.890 Other specified postprocedural states; Z88.1 Allergy status to other antibiotic agents; Z88.8 Allergy status to other drugs, medicaments and biological substances; Z79.51 Long term (current) use of inhaled steroids; Z68.42 Body mass index [BMI] 45.0-49.9, adult
CPT/HCPCS: 73700; 76377; 96372; 99283; J1170

== ENCOUNTER 2022-08-06 07:11 | Inpatient (IN) | payer MEDICAID ==
[~2022-08-06 07:11] MED LIST changes: +Bupivacaine 0.5% 30 ML SDV ONE; -Bupivacaine 0.5% 50 ML MDV ONE
[2022-08-06] MEDS ORDERED: Nozin Nasal Sanitizer NASBOTH ONE (07:30)
[2022-08-06 07:37] LABS: HEMATOCRIT 45.7 % (34.3-46.0); HEMOGLOBIN 14.9 g/dL (11.2-15.5); MEAN CORPUSCULAR HEMOGLOBIN 29.6 pg (31.6-35.5); MEAN CORPUSCULAR HGB CONC 32.6 g/dL (31.6-35.5); MEAN CORPUSCULAR VOLUME 90.9 fL (81.4-99.0); RED BLOOD CELL COUNT 5.03 M/uL (3.77-5.24); WHITE BLOOD CELL COUNT,WBC 10.7 K/uL (3.2-11.0)
[2022-08-06] MEDS ORDERED: fentaNYL 250 MCG/5 ML SDV ONE (07:47)
[2022-08-06] MEDS ORDERED: Midazolam 1 MG/ML 2 ML SDV ONE ×2 (07:47→11:34)
[2022-08-06] MEDS ORDERED: Propofol 200 MG/20 ML SDV ONE ×2 (07:48→11:27)
[2022-08-06] MEDS ORDERED: Dexamethasone 4 MG/ML SDV ONE (07:48)
[2022-08-06] MEDS ORDERED: Ondansetron 4 MG/2 ML SDV ONE (07:48)
[2022-08-06 07:52] LABS: BLOOD UREA NITROGEN,BUN 10 mg/dL (7-18); CALCIUM 8.8 mg/dL (8.5-10.1); CARBON DIOXIDE,CO2 22 mmol/L (21-32); CHLORIDE,CL 101 mmol/L (100-108); CREATININE 1.1 mg/dL (0.6-1.0); ESTIMATED GFR 67 mL/min (>60); GLUCOSE RANDOM 104 mg/dL (74-106); POTASSIUM,K 3.4 mmol/L (3.6-5.2); SODIUM,NA 138 mmol/L (140-148)
[2022-08-06 07:53] LABS: ANION GAP 18.4 mmol/L (5.0-14.0)
[2022-08-06] MEDS ORDERED: ceFAZolin 2 GM in Premix Bag 1 BAG IV ONE (08:30)
[2022-08-06] MEDS ORDERED: Lactated Ringers 1,000 ML IV SCH (08:30)
[2022-08-06] MEDS ORDERED: Glycopyrrolate 0.2 MG/ML 5 ML MDV ONE (09:32)
[2022-08-06] MEDS ORDERED: Lidocaine 2% 5 ML SDV ONE (10:15)
[2022-08-06] MEDS ORDERED: Sodium Chloride 0.9% 10 ML ONE (10:24)
[2022-08-06] MEDS ORDERED: Phenylephrine 1% 10 MG/ML SDV ONE (10:24)
[2022-08-06] MEDS ORDERED: Labetalol 20 MG/4 ML Syringe ONE (10:27)
[2022-08-06] MEDS ORDERED: Rocuronium 50 MG/5 ML Vial ONE (10:41)
[2022-08-06] MEDS ORDERED: fentaNYL 100 MCG/2 ML SDV ONE ×2 (11:02→11:30)
[2022-08-06] MEDS ORDERED: Sugammadex Sodium 200 MG/2 ML VIAL ONE (11:23)
[2022-08-06] MEDS ORDERED: Morphine 2 MG/ML SYRINGE IVPUSH PRN (11:49)
[2022-08-06] MEDS ORDERED: Ondansetron 4 MG/2 ML SDV IVPUSH PRN (11:49)
[2022-08-06] MEDS ORDERED: Docusate Sodium 100 MG Cap PO PRN (11:49)
[2022-08-06] MEDS ORDERED: Rizatriptan 10 MG Tab.DIS PO PRN (11:55)
[2022-08-06] MEDS ORDERED: Nystatin Topical Powder 15 GM Bottle TOP PRN (11:55)
[2022-08-06] MEDS ORDERED: Furosemide 20 MG Tab PO PRN (11:55)
[2022-08-06] MEDS ORDERED: ONABOTULINUMTOXINA 50 UNIT IM SCH (12:00)
[2022-08-06] MEDS ORDERED: ceFAZolin 2 GM in Sodium Chloride 0.9% 100 ML IV SCH (12:00)
[2022-08-06] MEDS ORDERED: HYDROmorphone 0.5 MG/0.5 ML Syringe IVPUSH ONE (12:23)
[2022-08-06] MEDS ORDERED: Albuterol 6.7 GM Inhaler INH PRN (12:45)
[2022-08-06] MEDS ORDERED: ALPRAZolam 0.5 MG Tab PO PRN (12:46)
[2022-08-06] MEDS ORDERED: ClonazePAM 1 MG Tab PO PRN (12:47)
[2022-08-06] MEDS ORDERED: Lactated Ringers 1,000 ML ONE (14:04)
[2022-08-06] MEDS: Sodium Chloride 0.9% 1,000 ML IV SCH ×2 (14:12→22:49)
[2022-08-06] MEDS: Ketorolac 30 MG/ML SDV IVPUSH PRN ×2 (15:44→23:50)
[2022-08-06] MEDS: Acetaminophen 325 MG Tab PO SCH ×3 (15:44→21:19)
[2022-08-06] MEDS ORDERED: Non-Formulary Medication 1 Each (Prazosin Hcl [Prazosin] 2 MG Capsule) PO SCH (17:00)
[2022-08-06] MEDS: ceFAZolin 2 GM in Premix Bag 1 BAG IV SCH (17:09)
[2022-08-06] MEDS: Doxepin 25 MG Cap PO SCH ×2 (19:29→20:46)
[2022-08-06] MEDS: Nozin Nasal Sanitizer NASBOTH SCH ×2 (19:55→20:46)
[2022-08-06] MEDS: tiZANidine 2 MG Tab PO PRN (19:59)
[2022-08-06] MEDS ORDERED: Non-Formulary Medication 1 Each (Duloxetine Hcl [Cymbalta] 60 MG Capsule.Dr) PO SCH (21:00)
[2022-08-06] MEDS ORDERED: DOXEPIN HCL 100 MG PO SCH (21:00)
[2022-08-07] MEDS: ceFAZolin 2 GM in Premix Bag 1 BAG IV SCH ×2 (02:03→09:42)
[2022-08-07] MEDS: Acetaminophen 325 MG Tab PO SCH ×5 (04:16→21:28)
[2022-08-07] MEDS: Verapamil 120 MG Tab.ER PO SCH (08:14)
[2022-08-07] MEDS: Nozin Nasal Sanitizer NASBOTH SCH ×2 (08:14→20:25)
[2022-08-07] MEDS: DULoxetine 30 MG Cap PO SCH (08:18)
[2022-08-07] MEDS: Doxepin 25 MG Cap PO SCH ×2 (08:19→20:26)
[2022-08-07] MEDS: LISDEXAMFETAMINE PO SCH (08:19)
[2022-08-07] MEDS ORDERED: VERAPAMIL 120 MG PO SCH (09:00)
[2022-08-07] MEDS: Ketorolac 30 MG/ML SDV IVPUSH PRN ×2 (09:41→19:07)
[2022-08-07] MEDS: HYDROmorphone 2 MG Tab PO PRN ×2 (18:04→22:58)
[2022-08-07] MEDS: tiZANidine 2 MG Tab PO PRN (20:32)
[2022-08-08] MEDS: Acetaminophen 325 MG Tab PO SCH ×2 (04:03→10:32)
[2022-08-08] MEDS: HYDROmorphone 2 MG Tab PO PRN ×2 (04:03→08:17)
[2022-08-08] MEDS: Doxepin 25 MG Cap PO SCH (08:17)
[2022-08-08] MEDS: Nozin Nasal Sanitizer NASBOTH SCH (08:17)
[2022-08-08] MEDS: LISDEXAMFETAMINE PO SCH (08:18)
[2022-08-08] MEDS: Verapamil 120 MG Tab.ER PO SCH (08:19)
[2022-08-08] MEDS: DULoxetine 30 MG Cap PO SCH (08:19)
[2022-08-08] MEDS: Ketorolac 30 MG/ML SDV IVPUSH PRN (10:09)
[2022-08-08] MEDS: tiZANidine 2 MG Tab PO PRN (10:18)
[2022-08-30] MEDS ORDERED: ONABOTULINUMTOXINA 50 UNIT IM SCH (14:00)
== END 2022-08-08 11:00 | disposition home or self-care (01) | DRG 493 ==
LOC: JP.SDS 07:11 → JP.ICU 11:49 → JP.SDS 08-07 19:18
PROVIDERS: ADMIT Specialist; ATTEND Specialist
PROC: 0QSH04Z Reposition Left Tibia with Internal Fixation Device, Open Approach (ICD-10-PCS; principal; 2022-08-06)
DX: M25.362 Other instability, left knee (principal); Z68.42 Body mass index [BMI] 45.0-49.9, adult; F17.210 Nicotine dependence, cigarettes, uncomplicated; F41.9 Anxiety disorder, unspecified; F32.A Depression, unspecified; E66.01 Morbid (severe) obesity due to excess calories; Z79.51 Long term (current) use of inhaled steroids; Z79.899 Other long term (current) drug therapy
CPT/HCPCS: 36415; 73560-26-LT; 73560-LT; 80048; 85027; 97110-GP; 97161-GP; A9270-GY; C1713; J0690; J1100; J1170; J1885; J2250; J2370; J2405; J2704; J3010; J3490; J7030; J7120

== ENCOUNTER 2022-08-20 14:57 | Emergency (ER) | payer MEDICAID ==
[2022-08-20 17:18] LABS: BASOPHILS PERCENT AUTO 0.2 % (0.1-1.3); EOSINOPHILS ABSOLUTE AUTO 0.31 K/uL (0.00-0.40); EOSINOPHILS PERCENT AUTO 3.7 % (0.0-5.4); HEMOGLOBIN 11.5 g/dL (11.2-15.5); IMMATURE GRAN ABSOLUTE AUTO 0.03 K/uL (0.00-0.23); IMMATURE GRAN PERCENT AUTO 0.4 % (0.0-0.7); LYMPHOCYTES ABSOLUTE AUTO 1.99 K/uL (0.8-3.3); LYMPHOCYTES PERCENT AUTO 23.9 % (11.4-47.7); MEAN CORPUSCULAR HEMOGLOBIN 29.4 pg (31.6-35.5); MEAN CORPUSCULAR HGB CONC 32.9 g/dL (31.6-35.5); MEAN CORPUSCULAR VOLUME 89.5 fL (81.4-99.0); MONOCYTES ABSOLUTE AUTO 0.57 K/uL (0.20-0.90); MONOCYTES PERCENT AUTO 6.8 % (3.3-12.6); NEUTROPHILS ABSOLUTE AUTO 5.42 K/uL (1.0-7.6); PLATELET COUNT,PLT 280 K/uL (130-375); RED BLOOD CELL COUNT 3.91 M/uL (3.77-5.24); WHITE BLOOD CELL COUNT,WBC 8.3 K/uL (3.2-11.0)
[2022-08-20 17:19] LABS: BASOPHILS ABSOLUTE AUTO 0.02 K/uL (0.00-0.10)
[2022-08-20 17:35] LABS: C-REACTIVE PROTEIN 4.68 mg/dL (0.0-0.3); CALCIUM 8.4 mg/dL (8.5-10.1); EST CRCL DRUG DOSING (CG) 69.98 mL/min; POTASSIUM,K 3.8 mmol/L (3.6-5.2)
[2022-08-20 17:36] LABS: ANION GAP 11.8 mmol/L (5.0-14.0)
[2022-08-20 17:42] LABS: SEDIMENTATION RATE MANUAL 22 mm/hr (0-25)
[2022-08-20] MEDS ORDERED: Naloxone 0.4 MG/ML SDV IVPUSH PRN (17:46)
[2022-08-20] MEDS ORDERED: HYDROmorphone 1 MG/ML Syringe IM ONE (17:46)
[2022-08-20] MEDS ORDERED: Sodium Chloride 0.9% 10 ML Syringe FLUSH PRN (18:04)
[2022-08-20] MEDS ORDERED: Ketorolac 30 MG/ML SDV IVPUSH ONE (18:05)
[2022-08-20] MEDS ORDERED: HYDROmorphone 0.5 MG/0.5 ML Syringe IVPUSH ONE (18:05)
[2022-08-20] MEDS ORDERED: cefTRIAXone 2 GM in Sodium Chloride 0.9% 50 ML IV ONE (18:05)
== END 2022-08-20 19:33 | disposition home or self-care (01) ==
LOC: JP.ED 14:57
DX: L03.116 Cellulitis of left lower limb (principal); J45.909 Unspecified asthma, uncomplicated; K21.9 Gastro-esophageal reflux disease without esophagitis; E66.9 Obesity, unspecified; Z68.42 Body mass index [BMI] 45.0-49.9, adult; Z88.1 Allergy status to other antibiotic agents; Z88.8 Allergy status to other drugs, medicaments and biological substances; Z88.5 Allergy status to narcotic agent
CPT/HCPCS: 36415; 73560; 80048; 83605; 85025; 85651; 86140; 96365; 96375; 99283; J0696; J1170; J1885; J3490

== ENCOUNTER 2022-10-08 07:40 | Day surgery (SDC) | payer MEDICAID ==
[~2022-10-08 07:40] MED LIST changes: +Dexamethasone 4 MG/ML SDV ONE; +Glycopyrrolate 0.2 MG/ML 5 ML MDV ONE; +Neostigmine Methylsulfate 1 MG/ML 5 ML Syringe ONE; +Ondansetron 4 MG/2 ML SDV ONE; +Propofol 200 MG/20 ML SDV ONE; +Rocuronium 50 MG/5 ML Vial ONE; +Succinylcholine 200 MG/10 ML MDV ONE; +fentaNYL 250 MCG/5 ML SDV ONE
[2022-10-08 08:02] LABS: BASOPHILS ABSOLUTE AUTO 0.04 K/uL (0.00-0.10); BASOPHILS PERCENT AUTO 0.4 % (0.1-1.3); EOSINOPHILS ABSOLUTE AUTO 0.41 K/uL (0.00-0.40); EOSINOPHILS PERCENT AUTO 4.3 % (0.0-5.4); HEMATOCRIT 41.5 % (34.3-46.0); HEMOGLOBIN 13.4 g/dL (11.2-15.5); IMMATURE GRAN ABSOLUTE AUTO 0.03 K/uL (0.00-0.23); IMMATURE GRAN PERCENT AUTO 0.3 % (0.0-0.7); LYMPHOCYTES ABSOLUTE AUTO 2.85 K/uL (0.8-3.3); LYMPHOCYTES PERCENT AUTO 29.8 % (11.4-47.7); MEAN CORPUSCULAR HEMOGLOBIN 29.3 pg (31.6-35.5); MEAN CORPUSCULAR HGB CONC 32.3 g/dL (31.6-35.5); MEAN CORPUSCULAR VOLUME 90.8 fL (81.4-99.0); MONOCYTES ABSOLUTE AUTO 0.63 K/uL (0.20-0.90); MONOCYTES PERCENT AUTO 6.6 % (3.3-12.6); NEUTROPHILS PERCENT AUTO 58.6 % (40.0-78.1); PLATELET COUNT,PLT 226 K/uL (130-375); RED BLOOD CELL COUNT 4.57 M/uL (3.77-5.24); WHITE BLOOD CELL COUNT,WBC 9.6 K/uL (3.2-11.0)
[2022-10-08 08:24] LABS: ALANINE AMINOTRANSFERASE,ALT 48 U/L (12-78); ALBUMIN 3.3 g/dL (3.4-5.0); ALKALINE PHOSPHATASE 106 U/L (46-116); ASPARTATE AMNIOTRANSFERASE,AST 25 U/L (15-37); BILIRUBIN TOTAL 0.2 mg/dL (0.2-1.0); BLOOD UREA NITROGEN,BUN 10 mg/dL (7-18); CALCIUM 8.4 mg/dL (8.5-10.1); CARBON DIOXIDE,CO2 27 mmol/L (21-32); CHLORIDE,CL 102 mmol/L (100-108); ESTIMATED GFR 75 mL/min (>60); GLUCOSE RANDOM 93 mg/dL (74-106); POTASSIUM,K 3.4 mmol/L (3.6-5.2); PROTEIN TOTAL,TP 6.7 g/dL (6.4-8.2); SODIUM,NA 140 mmol/L (140-148)
[2022-10-08 08:29] LABS: ANION GAP 14.4 mmol/L (5.0-14.0)
[2022-10-08] MEDS ORDERED: Nozin Nasal Sanitizer NASBOTH ONE (08:30)
[2022-10-08] MEDS ORDERED: Lactated Ringers 1,000 ML IV SCH (08:30)
[2022-10-08] MEDS ORDERED: ceFAZolin 1 GM in Premix Bag 1 BAG IV ONE (09:00)
[2022-10-08] MEDS ORDERED: HYDROmorphone 2 MG Tab PO PRN (13:03)
== END 2022-10-08 14:10 | disposition home or self-care (01) ==
LOC: JP.SDS 07:40
PROVIDERS: ATTEND Specialist
DX: G56.21 Lesion of ulnar nerve, right upper limb (principal); J45.909 Unspecified asthma, uncomplicated; M46.1 Sacroiliitis, not elsewhere classified; K21.9 Gastro-esophageal reflux disease without esophagitis; G47.33 Obstructive sleep apnea (adult) (pediatric); F41.9 Anxiety disorder, unspecified; F32.A Depression, unspecified; F43.10 Post-traumatic stress disorder, unspecified; E66.9 Obesity, unspecified; Z87.891 Personal history of nicotine dependence; Z86.73 Personal history of transient ischemic attack (TIA), and cerebral infarction without residual deficits; Z68.42 Body mass index [BMI] 45.0-49.9, adult
CPT/HCPCS: 25150; 36415; 64718; 80053; 85025; A9270; J0330; J0690; J1100; J2405; J2704; J2710; J3010; J3490; J7120

== ENCOUNTER 2022-10-14 16:00 | Emergency (ER) | payer MEDICAID | END 2022-10-14 19:00 | disposition home or self-care (01) | LOC: JP.ED 16:00 | DX: M79.81 Nontraumatic hematoma of soft tissue (principal); J45.909 Unspecified asthma, uncomplicated; K21.9 Gastro-esophageal reflux disease without esophagitis; E66.9 Obesity, unspecified; Z68.42 Body mass index [BMI] 45.0-49.9, adult; Z88.1 Allergy status to other antibiotic agents; Z88.8 Allergy status to other drugs, medicaments and biological substances; Z79.899 Other long term (current) drug therapy; Z72.0 Tobacco use | CPT/HCPCS: 99282 ==

== ENCOUNTER 2022-12-12 05:55 | Day surgery (SDC) | payer MEDICAID ==
[2022-12-12] MEDS ORDERED: Nozin Nasal Sanitizer NASBOTH ONE (06:00)
[2022-12-12 06:22] LABS: HEMATOCRIT 40.5 % (34.3-46.0); HEMOGLOBIN 13.5 g/dL (11.2-15.5); MEAN CORPUSCULAR HEMOGLOBIN 30.1 pg (31.6-35.5); MEAN CORPUSCULAR HGB CONC 33.3 g/dL (31.6-35.5); MEAN CORPUSCULAR VOLUME 90.2 fL (81.4-99.0); RED BLOOD CELL COUNT 4.49 M/uL (3.77-5.24); WHITE BLOOD CELL COUNT,WBC 9.9 K/uL (3.2-11.0)
[2022-12-12 06:43] LABS: A/G RATIO 0.9 (1.2-2.2); ALANINE AMINOTRANSFERASE,ALT 16 U/L (12-78); ALBUMIN 3.2 g/dL (3.4-5.0); ALKALINE PHOSPHATASE 104 U/L (46-116); ASPARTATE AMNIOTRANSFERASE,AST 14 U/L (15-37); BILIRUBIN TOTAL 0.2 mg/dL (0.2-1.0); BLOOD UREA NITROGEN,BUN 12 mg/dL (7-18); CALCIUM 8.6 mg/dL (8.5-10.1); CARBON DIOXIDE,CO2 26 mmol/L (21-32); CHLORIDE,CL 102 mmol/L (100-108); CREATININE 0.9 mg/dL (0.6-1.0); EST CRCL DRUG DOSING (CG) 77.76 mL/min; ESTIMATED GFR 85 mL/min (>60); GLUCOSE RANDOM 92 mg/dL (74-106); POTASSIUM,K 3.8 mmol/L (3.6-5.2); PROTEIN TOTAL,TP 6.6 g/dL (6.4-8.2); SODIUM,NA 139 mmol/L (140-148)
[2022-12-12 06:44] LABS: ANION GAP 14.8 mmol/L (5.0-14.0)
[2022-12-12] MEDS ORDERED: Bupivacaine 0.5% 30 ML SDV ONE ×2 (06:57→08:32)
[2022-12-12] MEDS ORDERED: Lactated Ringers 1,000 ML IV SCH (07:00)
[2022-12-12] MEDS ORDERED: fentaNYL 250 MCG/5 ML SDV ONE (07:09)
[2022-12-12] MEDS ORDERED: ceFAZolin 2 GM in Premix Bag 1 BAG IV ONE (07:30)
[2022-12-12] MEDS ORDERED: Albuterol/Ipratropium 3.0-0.5 MG/3 ML Neb Soln NEB ONE (07:44)
[2022-12-12] MEDS ORDERED: Rocuronium 50 MG/5 ML Vial ONE (08:13)
[2022-12-12] MEDS ORDERED: Dexamethasone 4 MG/ML SDV ONE (08:13)
[2022-12-12] MEDS ORDERED: Ondansetron 4 MG/2 ML SDV ONE (08:13)
[2022-12-12] MEDS ORDERED: Succinylcholine 200 MG/10 ML MDV ONE (08:13)
[2022-12-12] MEDS ORDERED: Glycopyrrolate 0.2 MG/ML 5 ML MDV ONE (08:13)
[2022-12-12] MEDS ORDERED: Propofol 200 MG/20 ML SDV ONE (08:13)
[2022-12-12] MEDS ORDERED: Neostigmine Methylsulfate 1 MG/ML 5 ML Syringe ONE (08:13)
[2022-12-12] MEDS ORDERED: fentaNYL 100 MCG/2 ML SDV ONE (08:34)
== END 2022-12-12 11:15 | disposition home or self-care (01) ==
LOC: JP.SDS 05:55
PROVIDERS: ATTEND Specialist
DX: M65.861 Other synovitis and tenosynovitis, right lower leg (principal); M24.10 Other articular cartilage disorders, unspecified site; M94.261 Chondromalacia, right knee; F17.200 Nicotine dependence, unspecified, uncomplicated; F43.10 Post-traumatic stress disorder, unspecified; Z87.820 Personal history of traumatic brain injury; Z88.2 Allergy status to sulfonamides; Z88.8 Allergy status to other drugs, medicaments and biological substances
CPT/HCPCS: 36415; 80053; 85027; 94640; A9270-GY; J0330; J0690; J1100; J2405; J2704; J2710; J3010; J3490; J7120; J7620

== ENCOUNTER 2023-01-23 09:49 | Day surgery (SDC) | payer MEDICAID ==
[~2023-01-23 09:49] MED LIST changes: -Bupivacaine 0.5% 30 ML SDV ONE; -Dexamethasone 4 MG/ML SDV ONE; -Glycopyrrolate 0.2 MG/ML 5 ML MDV ONE; -Neostigmine Methylsulfate 1 MG/ML 5 ML Syringe ONE; -Ondansetron 4 MG/2 ML SDV ONE; -Propofol 200 MG/20 ML SDV ONE; -Rocuronium 50 MG/5 ML Vial ONE; -Succinylcholine 200 MG/10 ML MDV ONE
[2023-01-23] MEDS ORDERED: Propofol 200 MG/20 ML SDV ONE ×2 (10:16→11:39)
[2023-01-23] MEDS ORDERED: Nozin Nasal Sanitizer NASBOTH ONE (10:30)
[2023-01-23 10:45] LABS: HEMOGLOBIN 12.1 g/dL (11.2-15.5); MEAN CORPUSCULAR HGB CONC 32.7 g/dL (31.6-35.5); MEAN CORPUSCULAR VOLUME 91.6 fL (81.4-99.0); RED BLOOD CELL COUNT 4.04 M/uL (3.77-5.24); WHITE BLOOD CELL COUNT,WBC 6.4 K/uL (3.2-11.0)
[2023-01-23] MEDS ORDERED: Bupivacaine 0.5% 30 ML SDV ONE (10:52)
[2023-01-23] MEDS ORDERED: Lactated Ringers 1,000 ML IV SCH (11:00)
[2023-01-23] MEDS ORDERED: ceFAZolin 2 GM in Sodium Chloride 0.9% 50 ML IV ONE (11:00)
[2023-01-23 11:05] LABS: A/G RATIO 0.9 (1.2-2.2); ALANINE AMINOTRANSFERASE,ALT 61 U/L (12-78); ALBUMIN 3.1 g/dL (3.4-5.0); ALKALINE PHOSPHATASE 111 U/L (46-116); ASPARTATE AMNIOTRANSFERASE,AST 78 U/L (15-37); BILIRUBIN TOTAL 0.4 mg/dL (0.2-1.0); BLOOD UREA NITROGEN,BUN 8 mg/dL (7-18); CALCIUM 7.9 mg/dL (8.5-10.1); CARBON DIOXIDE,CO2 28 mmol/L (21-32); CHLORIDE,CL 105 mmol/L (100-108); EST CRCL DRUG DOSING (CG) 69.98 mL/min; ESTIMATED GFR 75 mL/min (>60); GLUCOSE RANDOM 90 mg/dL (74-106); POTASSIUM,K 4.1 mmol/L (3.6-5.2); PROTEIN TOTAL,TP 6.4 g/dL (6.4-8.2); SODIUM,NA 139 mmol/L (140-148)
[2023-01-23 11:06] LABS: ANION GAP 10.1 mmol/L (5.0-14.0)
[2023-01-23] MEDS ORDERED: Neostigmine Methylsulfate 10 MG/10 ML MDV ONE (11:39)
[2023-01-23] MEDS ORDERED: Glycopyrrolate 0.2 MG/ML 5 ML MDV ONE (11:39)
[2023-01-23] MEDS ORDERED: Rocuronium 50 MG/5 ML Vial ONE (11:39)
[2023-01-23] MEDS ORDERED: Ondansetron 4 MG/2 ML SDV ONE (11:39)
[2023-01-23] MEDS ORDERED: Succinylcholine 200 MG/10 ML MDV ONE (11:39)
[2023-01-23] MEDS ORDERED: Dexamethasone 4 MG/ML SDV ONE (11:39)
[2023-01-23] MEDS ORDERED: fentaNYL 250 MCG/5 ML SDV ONE (12:01)
[2023-01-23] MEDS ORDERED: Lactated Ringers 1,000 ML ONE (13:25)
[2023-01-23] MEDS ORDERED: HYDROmorphone 2 MG Tab PO PRN (15:00)
== END 2023-01-23 16:11 | disposition home or self-care (01) ==
LOC: JP.SDS 09:49
PROVIDERS: ATTEND Specialist
DX: M22.42 Chondromalacia patellae, left knee (principal); F41.9 Anxiety disorder, unspecified; F17.200 Nicotine dependence, unspecified, uncomplicated; F43.10 Post-traumatic stress disorder, unspecified; Z79.899 Other long term (current) drug therapy; Z88.2 Allergy status to sulfonamides; Z88.8 Allergy status to other drugs, medicaments and biological substances
CPT/HCPCS: 27422; 29877; 36415; 80053; 84703; 85027; A9270; J0330; J0690; J1100; J2405; J2704; J2710; J3010; J3490; J7120

== ENCOUNTER 2023-04-23 23:07 | Emergency (ER) | payer MEDICAID | END 2023-04-24 01:50 | disposition home or self-care (01) | LOC: JP.ED 23:07 | DX: S80.01XA Contusion of right knee, initial encounter (principal); S80.02XA Contusion of left knee, initial encounter; J45.909 Unspecified asthma, uncomplicated; E66.9 Obesity, unspecified; Z68.42 Body mass index [BMI] 45.0-49.9, adult; Z88.2 Allergy status to sulfonamides; Z88.8 Allergy status to other drugs, medicaments and biological substances; Z79.899 Other long term (current) drug therapy; Z90.49 Acquired absence of other specified parts of digestive tract; Z90.710 Acquired absence of both cervix and uterus | CPT/HCPCS: 73564-50; 99283 ==

== ENCOUNTER 2023-06-17 07:49 | Inpatient (IN) | payer MEDICAID ==
[~2023-06-17 07:49] MED LIST changes: +Nozin Nasal Sanitizer NASBOTH ONE; +ceFAZolin 2 GM in Sodium Chloride 0.9% 100 ML IV ONE; -fentaNYL 250 MCG/5 ML SDV ONE
[2023-06-17 08:20] LABS: HEMATOCRIT 39.5 % (34.3-46.0); HEMOGLOBIN 13.4 g/dL (11.2-15.5); MEAN CORPUSCULAR HEMOGLOBIN 30.5 pg (31.6-35.5); MEAN CORPUSCULAR HGB CONC 33.9 g/dL (31.6-35.5); MEAN CORPUSCULAR VOLUME 89.8 fL (81.4-99.0); RED BLOOD CELL COUNT 4.4 M/uL (3.77-5.24); WHITE BLOOD CELL COUNT,WBC 7.8 K/uL (3.2-11.0)
[2023-06-17] MEDS ORDERED: Propofol 200 MG/20 ML SDV ONE (08:24)
[2023-06-17] MEDS ORDERED: Midazolam 1 MG/ML 2 ML SDV ONE (08:28)
[2023-06-17] MEDS ORDERED: fentaNYL 100 MCG/2 ML SDV ONE ×3 (08:28→12:03)
[2023-06-17 08:41] LABS: A/G RATIO 0.8 (1.2-2.2); ALANINE AMINOTRANSFERASE,ALT 26 U/L (12-78); ALBUMIN 2.9 g/dL (3.4-5.0); ALKALINE PHOSPHATASE 87 U/L (46-116); ASPARTATE AMNIOTRANSFERASE,AST 25 U/L (15-37); BILIRUBIN TOTAL 0.3 mg/dL (0.2-1.0); BLOOD UREA NITROGEN,BUN 11 mg/dL (7-18); CALCIUM 8.5 mg/dL (8.5-10.1); CARBON DIOXIDE,CO2 28 mmol/L (21-32); CHLORIDE,CL 104 mmol/L (100-108); CREATININE 0.9 mg/dL (0.6-1.0); EST CRCL DRUG DOSING (CG) 84.03 mL/min; ESTIMATED GFR 85 mL/min (>60); GLUCOSE RANDOM 99 mg/dL (74-106); POTASSIUM,K 3.4 mmol/L (3.6-5.2); PROTEIN TOTAL,TP 6.5 g/dL (6.4-8.2); SODIUM,NA 141 mmol/L (140-148)
[2023-06-17] MEDS: Lactated Ringers 1,000 ML IV SCH (08:43)
[2023-06-17] MEDS: Nozin Nasal Sanitizer NASBOTH SCH ×2 (08:43→20:11)
[2023-06-17 08:45] LABS: ANION GAP 12.4 mmol/L (5.0-14.0)
[2023-06-17] MEDS ORDERED: Glycopyrrolate 0.2 MG/ML 5 ML MDV ONE (09:09)
[2023-06-17] MEDS ORDERED: Ondansetron 4 MG/2 ML SDV ONE (09:09)
[2023-06-17] MEDS ORDERED: Neostigmine Methylsulfate 10 MG/10 ML MDV ONE (09:09)
[2023-06-17] MEDS ORDERED: Dexamethasone 4 MG/ML SDV ONE (09:09)
[2023-06-17] MEDS ORDERED: Rocuronium 50 MG/5 ML Vial ONE (09:09)
[2023-06-17] MEDS ORDERED: Succinylcholine 200 MG/10 ML MDV ONE (09:09)
[2023-06-17] MEDS: Albuterol/Ipratropium 3.0-0.5 MG/3 ML Neb Soln NEB ONE (09:17)
[2023-06-17] MEDS: ceFAZolin 2 GM in Premix Bag 1 BAG IV ONE (10:05)
[2023-06-17] MEDS ORDERED: fentaNYL 250 MCG/5 ML SDV ONE (10:27)
[2023-06-17] MEDS: Bupivacaine 0.5% 50 ML MDV ONE (10:46)
[2023-06-17] MEDS ORDERED: Labetalol 20 MG/4 ML Syringe ONE (11:06)
[2023-06-17] MEDS ORDERED: Lactated Ringers 1,000 ML ONE (12:05)
[2023-06-17] MEDS ORDERED: Magnesium Hydroxide 400 MG/5 ML Susp 30 ML Cup PO PRN (12:38)
[2023-06-17] MEDS ORDERED: Ondansetron 4 MG/2 ML SDV IVPUSH PRN (12:38)
[2023-06-17] MEDS ORDERED: Albuterol 6.7 GM Inhaler INH PRN (12:41)
[2023-06-17] MEDS ORDERED: Nystatin Topical Powder 15 GM Bottle TOP PRN (12:42)
[2023-06-17] MEDS ORDERED: Rizatriptan ODT 10 MG Tab PO PRN (12:42)
[2023-06-17] MEDS ORDERED: Furosemide 40 MG Tab PO PRN (12:42)
[2023-06-17] MEDS: Sodium Chloride 0.9% 1,000 ML IV SCH (13:21)
[2023-06-17] MEDS: HYDROmorphone 2 MG Tab PO PRN (13:28)
[2023-06-17] MEDS: Ketorolac 15 MG/ML SDV IVPUSH PRN (13:59)
[2023-06-17] MEDS ORDERED: ClonazePAM 1 MG Tab PO PRN (14:13)
[2023-06-17] MEDS: Acetaminophen 325 MG Tab PO SCH (14:56)
[2023-06-17] MEDS: tiZANidine 2 MG Tab PO PRN (15:05)
[2023-06-17] MEDS: Morphine 2 MG/ML SYRINGE IVPUSH PRN (16:00)
[2023-06-17] MEDS: ceFAZolin 2 GM in Premix Bag 1 BAG IV SCH (16:10)
[2023-06-17] MEDS: DULoxetine 30 MG Cap PO SCH (20:13)
[2023-06-17] MEDS: Amitriptyline 10 MG Tab PO SCH (20:17)
[2023-06-17] MEDS: traZODone 50 MG Tab PO SCH (20:47)
[2023-06-17] MEDS ORDERED: VERAPAMIL 120 MG PO SCH (21:00)
[2023-06-17] MEDS ORDERED: DULoxetine 30 MG Cap PO SCH (21:00)
[2023-06-18] MEDS: Docusate Sodium 100 MG Cap PO PRN (05:04)
[2023-06-18] MEDS: ALPRAZolam 0.5 MG Tab PO PRN (07:23)
[2023-06-18] MEDS ORDERED: Non-Formulary Medication 1 Each (Lisdexamfetamine [Vyvanse] 70 MG Cap) PO SCH (09:00)
[2023-06-18] MEDS: Aspirin 325 MG Tab.EC PO SCH (09:01)
[2023-06-18] MEDS: Verapamil 120 MG Tab.ER PO SCH (09:04)
[2023-06-18] MEDS: Prazosin 1 MG Cap PO SCH (21:40)
== END 2023-06-19 13:40 | disposition home or self-care (01) | DRG 468 ==
LOC: JP.SDS 07:49 → JP.2SS 12:38 → JP.SDS 06-18 14:30
PROVIDERS: ADMIT Specialist; ATTEND Specialist
PROC: 0SRC069 Replacement of Right Knee Joint with Oxidized Zirconium on Polyethylene Synthetic Substitute, Cemented, Open Approach (ICD-10-PCS; 2023-06-17)
PROC: 0SPC0JZ Removal of Synthetic Substitute from Right Knee Joint, Open Approach (ICD-10-PCS; principal; 2023-06-17 09:30)
DX: T84.84XA Pain due to internal orthopedic prosthetic devices, implants and grafts, initial encounter (principal); F41.9 Anxiety disorder, unspecified; Z88.1 Allergy status to other antibiotic agents; K21.9 Gastro-esophageal reflux disease without esophagitis
CPT/HCPCS: 36415; 73560-26-RT; 73560-RT; 80053; 85027; 94640; 97110-GP; 97116-GP; 97161-GP; A9270-GY; C1713; C1776; J0330; J0665; J0690; J1100; J1885; J1920; J2250; J2270; J2405; J2704; J2710; J3010; J3490; J7030; J7120; J7620

== ENCOUNTER 2023-09-25 05:57 | Day surgery (SDC) | payer MEDICAID ==
[2023-09-25 06:32] LABS: HEMATOCRIT 41.2 % (34.3-46.0); HEMOGLOBIN 13.7 g/dL (11.2-15.5); MEAN CORPUSCULAR HEMOGLOBIN 29.2 pg (31.6-35.5); MEAN CORPUSCULAR HGB CONC 33.3 g/dL (31.6-35.5); MEAN CORPUSCULAR VOLUME 87.8 fL (81.4-99.0); RED BLOOD CELL COUNT 4.69 M/uL (3.77-5.24)
[2023-09-25 06:53] LABS: A/G RATIO 0.9 (1.2-2.2); ALANINE AMINOTRANSFERASE,ALT 36 U/L (12-78); ALBUMIN 3.6 g/dL (3.4-5.0); ALKALINE PHOSPHATASE 105 U/L (46-116); ASPARTATE AMNIOTRANSFERASE,AST 25 U/L (15-37); BILIRUBIN TOTAL 0.5 mg/dL (0.2-1.0); BLOOD UREA NITROGEN,BUN 10 mg/dL (7-18); CALCIUM 8.5 mg/dL (8.5-10.1); CARBON DIOXIDE,CO2 26 mmol/L (21-32); CHLORIDE,CL 102 mmol/L (100-108); CREATININE 1.4 mg/dL (0.6-1.0); EST CRCL DRUG DOSING (CG) 49.51 mL/min; ESTIMATED GFR 50 mL/min (>60); GLUCOSE RANDOM 109 mg/dL (74-106); POTASSIUM,K 3.5 mmol/L (3.6-5.2); PROTEIN TOTAL,TP 7.7 g/dL (6.4-8.2); SODIUM,NA 141 mmol/L (140-148)
[2023-09-25 06:54] LABS: ANION GAP 16.5 mmol/L (5.0-14.0)
[2023-09-25] MEDS: Nozin Nasal Sanitizer NASBOTH ONE (07:08)
[2023-09-25] MEDS: Lactated Ringers 1,000 ML IV SCH (07:08)
[2023-09-25] MEDS ORDERED: Succinylcholine 200 MG/10 ML MDV ONE (07:44)
[2023-09-25] MEDS ORDERED: Rocuronium 50 MG/5 ML Vial ONE (07:44)
[2023-09-25] MEDS ORDERED: fentaNYL 250 MCG/5 ML SDV ONE ×2 (07:44→08:25)
[2023-09-25] MEDS ORDERED: Propofol 200 MG/20 ML SDV ONE (07:44)
[2023-09-25] MEDS ORDERED: Glycopyrrolate 0.2 MG/ML 5 ML MDV ONE (07:44)
[2023-09-25] MEDS ORDERED: Neostigmine Methylsulfate 10 MG/10 ML MDV ONE (07:44)
[2023-09-25] MEDS ORDERED: Ondansetron 4 MG/2 ML SDV ONE (07:44)
[2023-09-25] MEDS ORDERED: Dexamethasone 4 MG/ML SDV ONE (07:44)
[2023-09-25] MEDS: ceFAZolin 2 GM in Premix Bag 1 BAG IV ONE (08:30)
[2023-09-25] MEDS: Bupivacaine 0.5% 30 ML SDV ONE (08:35)
[2023-09-25] MEDS: HYDROmorphone 2 MG Tab PO PRN (11:47)
== END 2023-09-25 12:45 | disposition home or self-care (01) ==
LOC: JP.SDS 05:57
PROVIDERS: ATTEND Specialist
DX: G56.21 Lesion of ulnar nerve, right upper limb (principal); M25.831 Other specified joint disorders, right wrist; K21.9 Gastro-esophageal reflux disease without esophagitis; E66.9 Obesity, unspecified
CPT/HCPCS: 01710; 36415; 64718; 64719; 73562; 80053; 85027; A9270; J0330; J0665; J0690; J1100; J1596; J2405; J2704; J2710; J3010; J7120; J3490

== ENCOUNTER 2023-12-14 12:22 | Emergency (ER) | payer MEDICAID ==
[2023-12-14] MEDS: Ondansetron 4 MG/2 ML SDV IVPUSH ONE (12:51)
[2023-12-14] MEDS: Acetaminophen 1,000 MG in Premix Bag 1 BAG IV ONE (12:52)
[2023-12-14 12:55] LABS: BASOPHILS ABSOLUTE AUTO 0.03 K/uL (0.00-0.10); BASOPHILS PERCENT AUTO 0.3 % (0.1-1.3); EOSINOPHILS ABSOLUTE AUTO 0.07 K/uL (0.00-0.40); EOSINOPHILS PERCENT AUTO 0.7 % (0.0-5.4); IMMATURE GRAN ABSOLUTE AUTO 0.03 K/uL (0.00-0.23); IMMATURE GRAN PERCENT AUTO 0.3 % (0.0-0.7); LYMPHOCYTES ABSOLUTE AUTO 2.17 K/uL (0.8-3.3); LYMPHOCYTES PERCENT AUTO 20.8 % (11.4-47.7); MEAN CORPUSCULAR HEMOGLOBIN 30.5 pg (31.6-35.5); MEAN CORPUSCULAR HGB CONC 34.1 g/dL (31.6-35.5); MEAN CORPUSCULAR VOLUME 89.4 fL (81.4-99.0); MONOCYTES ABSOLUTE AUTO 0.77 K/uL (0.20-0.90); MONOCYTES PERCENT AUTO 7.4 % (3.3-12.6); NEUTROPHILS ABSOLUTE AUTO 7.34 K/uL (1.0-7.6); NEUTROPHILS PERCENT AUTO 70.5 % (40.0-78.1); PLATELET COUNT,PLT 277 K/uL (130-375); RED BLOOD CELL COUNT 4.92 M/uL (3.77-5.24); WHITE BLOOD CELL COUNT,WBC 10.4 K/uL (3.2-11.0)
[2023-12-14] MEDS: Sodium Chloride 0.9% 1,000 ML IV ONE (13:09)
[2023-12-14 13:16] LABS: ALANINE AMINOTRANSFERASE,ALT 50 U/L (12-78); ALBUMIN 4.2 g/dL (3.4-5.0); ALKALINE PHOSPHATASE 95 U/L (46-116); ANION GAP 13.9 mmol/L (5.0-14.0); ASPARTATE AMNIOTRANSFERASE,AST 34 U/L (15-37); BILIRUBIN TOTAL 0.8 mg/dL (0.2-1.0); BLOOD UREA NITROGEN,BUN 11 mg/dL (7-18); CALCIUM 9.4 mg/dL (8.5-10.1); CARBON DIOXIDE,CO2 25 mmol/L (21-32); CHLORIDE,CL 102 mmol/L (100-108); CREATININE 1.1 mg/dL (0.6-1.0); EST CRCL DRUG DOSING (CG) 62.91 mL/min; ESTIMATED GFR 66 mL/min (>60); GLUCOSE RANDOM 128 mg/dL (74-106); PROTEIN TOTAL,TP 8.4 g/dL (6.4-8.2); SODIUM,NA 141 mmol/L (140-148)
[2023-12-14 13:36] LABS: CORONAVIRUS COVID-19 NAA NEGATIVE (NEGATIVE); INFLUENZA A NAA NEGATIVE (NEGATIVE); INFLUENZA B NAA NEGATIVE (NEGATIVE); RESPIRATORY SYNCYTIAL VIR NAA NEGATIVE (NEGATIVE)
[2023-12-14] MEDS: Promethazine 12.5 MG in Sodium Chloride 0.9% 50 ML IV ONE (14:08)
[2023-12-14] MEDS: Morphine 2 MG/ML SYRINGE IVPUSH ONE (14:09)
[2023-12-14] MEDS: Sodium Chloride 0.9% 500 ML IV ONE (14:23)
[2023-12-14] MEDS: LORazepam 2 MG/ML SDV IVPUSH ONE (14:56)
[2023-12-14 15:48] LABS: APPEARANCE,URINE CLEAR (CLEAR); BILIRUBIN,URINE NEGATIVE (NEGATIVE); COLOR,URINE YELLOW (YELLOW); GLUCOSE,URINE NEGATIVE (NEGATIVE); KETONES,URINE TRACE mg/dL (NEGATIVE); LEUKOCYTE ESTERASE,URINE NEGATIVE (NEGATIVE); NITRITE,URINE NEGATIVE (NEGATIVE); OCCULT BLOOD,URINE NEGATIVE (NEGATIVE); PH,URINE 5.5 (5.0-8.0); PROTEIN,URINE 100 mg/dL (NEGATIVE); UROBILINOGEN,URINE 0.2 EU/dL (0.2-1.0)
[2023-12-14 15:59] LABS: BACTERIA,URINE FEW; EPITHELIAL CELLS,URINE FEW; MUCUS,URINE MODERATE; RBC,URINE NOT SEEN (0-5); WBC,URINE 0-5 (0-5)
[2023-12-14 16:00] LABS: AMORPHOUS SEDIMENT,URINE FEW
== END 2023-12-14 16:20 | disposition home or self-care (01) ==
LOC: JP.ED 12:22
DX: E86.0 Dehydration (principal); R45.1 Restlessness and agitation; R11.2 Nausea with vomiting, unspecified; J45.909 Unspecified asthma, uncomplicated; Z86.16 Personal history of COVID-19; Z90.49 Acquired absence of other specified parts of digestive tract; Z90.710 Acquired absence of both cervix and uterus; Z79.899 Other long term (current) drug therapy; Z88.2 Allergy status to sulfonamides; Z88.8 Allergy status to other drugs, medicaments and biological substances
CPT/HCPCS: 0241U; 36415; 80053; 80307; 81001; 81025; 82550; 83605; 85025; 86140; 93005; 96361; 96365; 96367; 96375; 99284; J0131; J2060; J2270; J2405; J2550; J3490; J7030; J7040

== ENCOUNTER 2024-03-11 06:08 | Day surgery (SDC) | payer MEDICAID ==
[2024-03-11 06:36] LABS: HEMATOCRIT 40.5 % (34.3-46.0); MEAN CORPUSCULAR HGB CONC 34.6 g/dL (31.6-35.5); MEAN CORPUSCULAR VOLUME 89.6 fL (81.4-99.0); RED BLOOD CELL COUNT 4.52 M/uL (3.77-5.24); WHITE BLOOD CELL COUNT,WBC 9.5 K/uL (3.2-11.0)
[2024-03-11 06:51] LABS: CALCIUM 8.8 mg/dL (8.5-10.1); EST CRCL DRUG DOSING (CG) 69.31 mL/min; POTASSIUM,K 3.5 mmol/L (3.6-5.2)
[2024-03-11 06:52] LABS: ANION GAP 16.5 mmol/L (5.0-14.0)
[2024-03-11] MEDS ORDERED: ceFAZolin 2 GM in Sodium Chloride 0.9% 100 ML IV ONE (07:00)
[2024-03-11] MEDS ORDERED: fentaNYL 250 MCG/5 ML SDV ONE ×2 (07:09→08:14)
[2024-03-11] MEDS ORDERED: Glycopyrrolate 0.2 MG/ML 5 ML MDV ONE (07:09)
[2024-03-11] MEDS ORDERED: Dexamethasone 4 MG/ML SDV ONE (07:09)
[2024-03-11] MEDS ORDERED: Succinylcholine 200 MG/10 ML MDV ONE (07:09)
[2024-03-11] MEDS ORDERED: Neostigmine Methylsulfate 10 MG/10 ML MDV ONE (07:09)
[2024-03-11] MEDS ORDERED: Rocuronium 50 MG/5 ML Vial ONE (07:09)
[2024-03-11] MEDS ORDERED: Ondansetron 4 MG/2 ML SDV ONE (07:09)
[2024-03-11] MEDS ORDERED: Propofol 200 MG/20 ML SDV ONE (07:09)
[2024-03-11] MEDS: Nozin Nasal Sanitizer NASBOTH ONE (07:23)
[2024-03-11] MEDS: Lactated Ringers 1,000 ML IV SCH (07:24)
[2024-03-11] MEDS: ceFAZolin 2 GM in Premix Bag 1 BAG IV ONE (07:50)
[2024-03-11] MEDS: Bupivacaine 0.5% 30 ML SDV ONE (08:28)
[2024-03-11] MEDS: HYDROmorphone 2 MG Tab PO PRN (10:27)
== END 2024-03-11 11:10 | disposition home or self-care (01) ==
LOC: JP.SDS 06:08
PROVIDERS: ATTEND Specialist
DX: M75.102 Unspecified rotator cuff tear or rupture of left shoulder, not specified as traumatic (principal); M75.42 Impingement syndrome of left shoulder; M71.9 Bursopathy, unspecified; F17.200 Nicotine dependence, unspecified, uncomplicated
CPT/HCPCS: 29826; 29827; 36415; 80048; 85027; A9270; C1713; J0330; J0665; J0690; J1100; J1596; J2405; J2704; J2710; J3010; J7120; 01630-QZ; J3490

== ENCOUNTER 2024-07-27 08:28 | Inpatient (IN) | payer MEDICARE, MEDICAID ==
[2024-07-27 08:54] LABS: HEMATOCRIT 43.1 % (34.3-46.0); HEMOGLOBIN 14.4 g/dL (11.2-15.5); MEAN CORPUSCULAR HEMOGLOBIN 31.1 pg (31.6-35.5); MEAN CORPUSCULAR HGB CONC 33.4 g/dL (31.6-35.5); MEAN CORPUSCULAR VOLUME 93.1 fL (81.4-99.0); RED BLOOD CELL COUNT 4.63 M/uL (3.77-5.24); WHITE BLOOD CELL COUNT,WBC 9.1 K/uL (3.2-11.0)
[2024-07-27 09:23] LABS: ALANINE AMINOTRANSFERASE,ALT 41 U/L (12-78); ALBUMIN 3.6 g/dL (3.4-5.0); ALKALINE PHOSPHATASE 87 U/L (46-116); ASPARTATE AMNIOTRANSFERASE,AST 23 U/L (15-37); BILIRUBIN TOTAL 0.4 mg/dL (0.2-1.0); BLOOD UREA NITROGEN,BUN 10 mg/dL (7-18); CALCIUM 9.3 mg/dL (8.5-10.1); CARBON DIOXIDE,CO2 28 mmol/L (21-32); CHLORIDE,CL 103 mmol/L (100-108); ESTIMATED GFR 74 mL/min (>60); GLUCOSE RANDOM 98 mg/dL (74-106); POTASSIUM,K 3.4 mmol/L (3.6-5.2); PROTEIN TOTAL,TP 7.4 g/dL (6.4-8.2); SODIUM,NA 140 mmol/L (140-148)
[2024-07-27 09:25] LABS: ANION GAP 12.4 mmol/L (5.0-14.0)
[2024-07-27] MEDS ORDERED: fentaNYL 100 MCG/2 ML SDV ONE (09:52)
[2024-07-27] MEDS ORDERED: Propofol 200 MG/20 ML SDV ONE (09:52)
[2024-07-27] MEDS ORDERED: Midazolam 1 MG/ML 2 ML SDV ONE (09:53)
[2024-07-27] MEDS: Nozin Nasal Sanitizer NASBOTH SCH ×2 (09:53→21:04)
[2024-07-27] MEDS: Lactated Ringers 1,000 ML IV SCH (09:53)
[2024-07-27] MEDS: Albuterol/Ipratropium 3.0-0.5 MG/3 ML Neb Soln NEB ONE (10:09)
[2024-07-27] MEDS ORDERED: Dexamethasone 4 MG/ML SDV ONE (13:05)
[2024-07-27] MEDS ORDERED: Rocuronium 50 MG/5 ML Vial ONE (13:05)
[2024-07-27] MEDS ORDERED: Glycopyrrolate 0.2 MG/ML 5 ML MDV ONE (13:05)
[2024-07-27] MEDS ORDERED: Succinylcholine 200 MG/10 ML MDV ONE (13:05)
[2024-07-27] MEDS ORDERED: fentaNYL 250 MCG/5 ML SDV ONE ×2 (13:05→13:58)
[2024-07-27] MEDS ORDERED: Neostigmine Methylsulfate 10 MG/10 ML MDV ONE (13:05)
[2024-07-27] MEDS ORDERED: Ondansetron 4 MG/2 ML SDV ONE (13:05)
[2024-07-27] MEDS ORDERED: Magnesium Hydroxide 400 MG/5 ML Susp 30 ML Cup PO PRN (13:06)
[2024-07-27] MEDS ORDERED: Docusate Sodium 100 MG Cap PO PRN (13:06)
[2024-07-27] MEDS ORDERED: Morphine 2 MG/ML SYRINGE IVPUSH PRN (13:06)
[2024-07-27] MEDS ORDERED: Albuterol 6.7 GM Inhaler INH PRN (13:07)
[2024-07-27] MEDS ORDERED: Rizatriptan ODT 10 MG Tab PO PRN (13:08)
[2024-07-27] MEDS: ceFAZolin 2 GM in Premix Bag 1 BAG IV ONE (13:10)
[2024-07-27] MEDS ORDERED: ONABOTULINUMTOXINA 50 UNIT IM SCH (13:15)
[2024-07-27] MEDS ORDERED: tiZANidine 2 MG Tab PO PRN (13:21)
[2024-07-27] MEDS: Tranexamic Acid 1,000 MG in Sodium Chloride 0.9% 50 ML IV ONE (13:35)
[2024-07-27] MEDS: Bupivacaine 0.5% 50 ML MDV ONE (13:47)
[2024-07-27] MEDS ORDERED: Labetalol 20 MG/4 ML Syringe ONE (14:03)
[2024-07-27] MEDS: hydrOXYzine HCL 100 MG/2 ML SDV IM ONE (15:54)
[2024-07-27] MEDS: Sodium Chloride 0.9% 1,000 ML IV SCH (16:21)
[2024-07-27] MEDS: Acetaminophen 325 MG Tab PO SCH (16:29)
[2024-07-27] MEDS: Ondansetron 4 MG/2 ML SDV IVPUSH PRN (16:30)
[2024-07-27] MEDS: Morphine 2 MG/ML SYRINGE IVPUSH PRN (16:34)
[2024-07-27] MEDS: HYDROmorphone 2 MG Tab PO PRN (17:34)
[2024-07-27] MEDS: ALPRAZolam 0.5 MG Tab PO PRN (18:48)
[2024-07-27] MEDS: Ketorolac 30 MG/ML SDV IVPUSH PRN (20:00)
[2024-07-27] MEDS: ceFAZolin 2 GM in Premix Bag 1 BAG IV SCH (20:07)
[2024-07-27] MEDS: Amitriptyline 25 MG Tab PO SCH (21:02)
[2024-07-27] MEDS: Prazosin 1 MG Cap PO SCH (21:03)
[2024-07-27] MEDS: Mirtazapine 15 MG Tab PO SCH (21:06)
[2024-07-27] MEDS: ClonazePAM 1 MG Tab PO PRN (21:06)
[2024-07-27] MEDS: Nystatin Topical Powder 15 GM Bottle TOP SCH (21:07)
[2024-07-28] MEDS: Aspirin 325 MG Tab.EC PO SCH (09:14)
[2024-07-28] MEDS: HYDROmorphone 2 MG Tab PO PRN (09:14)
== END 2024-07-29 15:15 | disposition home or self-care (01) | DRG 470 ==
LOC: JP.SDS 08:28 → JP.2SS 13:06 → JP.SDS 07-28 13:47 → JP.2SS 07-28 13:48
PROVIDERS: ADMIT Specialist; ATTEND Specialist
PROC: 0SRD069 Replacement of Left Knee Joint with Oxidized Zirconium on Polyethylene Synthetic Substitute, Cemented, Open Approach (ICD-10-PCS; principal; 2024-07-27 10:00)
DX: M17.12 Unilateral primary osteoarthritis, left knee (principal); Z98.890 Other specified postprocedural states; Z79.899 Other long term (current) drug therapy
CPT/HCPCS: 36415; 73560-26-LT; 73560-LT; 80053; 85027; 94640; 97110-GP; 97161-GP; 97530-GP; 97535-GP; A9270-GY; C1713; C1776; J0330; J0665; J0690; J1100; J1596; J1885; J1920; J2250; J2270; J2405; J2704; J2710; J3010; J3410; J3490; J7030; J7120

== ENCOUNTER 2024-10-07 07:24 | Day surgery (SDC) | payer MEDICAID, MEDICARE ==
[~2024-10-07 07:24] MED LIST changes: +Fat Emulsion 0 ML IV ONE; -Nozin Nasal Sanitizer NASBOTH ONE; -ceFAZolin 2 GM in Sodium Chloride 0.9% 100 ML IV ONE
[2024-10-07] MEDS ORDERED: fentaNYL 250 MCG/5 ML SDV ONE (07:25)
[2024-10-07] MEDS ORDERED: Propofol 200 MG/20 ML SDV ONE (07:25)
[2024-10-07] MEDS ORDERED: Dexamethasone 4 MG/ML SDV ONE (07:25)
[2024-10-07] MEDS ORDERED: Glycopyrrolate 0.2 MG/ML 5 ML MDV ONE (07:25)
[2024-10-07] MEDS ORDERED: Ondansetron 4 MG/2 ML SDV ONE (07:25)
[2024-10-07 07:50] LABS: PLATELET COUNT,PLT 332.0 K/uL (130-375); RED BLOOD CELL COUNT 4.92 M/uL (3.77-5.24); WHITE BLOOD CELL COUNT,WBC 9.9 K/uL (3.2-11.0)
[2024-10-07 08:06] LABS: BLOOD UREA NITROGEN,BUN 6.0 mg/dL (7-18); CARBON DIOXIDE,CO2 27.0 mmol/L (21-32); CHLORIDE,CL 104.0 mmol/L (100-108); CREATININE 0.8 mg/dL (0.6-1.0); EST CRCL DRUG DOSING (CG) 85.8 mL/min; ESTIMATED GFR 97.0 mL/min (>60); GLUCOSE RANDOM 108.0 mg/dL (74-106); POTASSIUM,K 3.7 mmol/L (3.6-5.2); SODIUM,NA 140.0 mmol/L (140-148)
[2024-10-07] MEDS: Nozin Nasal Sanitizer NASBOTH ONE (08:09)
[2024-10-07] MEDS: Lactated Ringers 1,000 ML IV SCH (08:10)
[2024-10-07] MEDS ORDERED: Midazolam 1 MG/ML 2 ML SDV ONE (08:33)
[2024-10-07] MEDS ORDERED: fentaNYL 100 MCG/2 ML SDV ONE (09:52)
[2024-10-07] MEDS ORDERED: Ketorolac 30 MG/ML SDV ONE (09:54)
== END 2024-10-07 12:00 | disposition home or self-care (01) ==
LOC: JP.SDS 07:24
PROVIDERS: ATTEND Specialist
DX: G56.22 Lesion of ulnar nerve, left upper limb (principal); E66.9 Obesity, unspecified
CPT/HCPCS: 36415; 64718; 64727; 64912; 80048; 84703; 85027; A9270; J0665; J0690; J1100; J1596; J1885; J2250; J2405; J2704; J2710; J3010; J7120; Q4133; J3490